=== PATIENT | male | born 1980 | race Caucasian/White ===

== ENCOUNTER 2022-10-23 04:45 | Inpatient (IN) ==
[2022-10-23] MEDS ORDERED: SODIUM CHLORIDE 0.9% 1000ML 1,000 ML IV STA (05:09)
[2022-10-23] MEDS ORDERED: ONDANSETRON INJ 2 MG/ML 2 ML VIAL IV STA (05:09)
[2022-10-23] MEDS ORDERED: AMIODARONE 150MG / 100ML D5W IV ONE (05:31)
[2022-10-23] MEDS ORDERED: AMIODARONE 360MG / 200ML D5W IV ONE ×2 (05:32→11:35)
[2022-10-23 05:35] LABS: Albumin Globulin Ratio 1.7 (0.9-2); Albumin Level 4.5 gm/dl (3.4-5.0); BUN Creatinine Ratio 17.3 (10-20); Bilirubin,Total 10.1 mg/dl (0.2-1.0); Calcium 9.3 mg/dl (8.5-10.1); Est GFR (African American) 125.3 ml/min; Est GFR (Non-African American) 108.1 ml/min; Globulin 2.6 gm/dl (2.5-4.0); Potassium 3.2 mmol/L (3.5-5.1); Total Protein 7.1 gm/dl (6.0-8.3)
[2022-10-23] MEDS ORDERED: POTASSIUM CHLORIDE 10 MEQ / 100ML WTR IV ONE (05:37)
[2022-10-23 05:42] LABS: Troponin I High Sensitivity 20.2 pg/ml (0-20)
[2022-10-23 05:48] LABS: iSTAT Creatinine 0.7 mg/dl (0.6-1.3); iSTAT Hemoglobin 13.6 g/dl (14.0-18.0); iSTAT Ionized Calcium 0.93 mmol/l (1.12-1.32); iSTAT Potassium 2.9 mmol/L (3.3-5.0)
[2022-10-23] MEDS ORDERED: MAGNESIUM SULFATE / D5W 1 GM/100 ML BAG IV SCH (05:51)
[2022-10-23 06:03] LABS: Magnesium 1.6 mg/dl (1.7-2.4)
--- NOTE | 2022-10-23 06:25 | XRay Report ---
SINGLE VIEW CHEST CLINICAL HISTORY: Dyspnea. FINDINGS: An AP, portable, upright chest radiograph is obtained. No prior studies are available for c omparison at the time of dictation. The heart appears enlarged. There is pulmonary vascular congestio n. Bilateral airspace opacities suggest edema. No large pleural effusion or pneumothorax is seen. The bony thorax is grossly intact. IMPRESSION: 1. The heart appears enlarged and there is evidence of fluid overload/congestive failure. 2. Bilateral airspace opacities likely represent pulmonary edema. Correlate clinically for evidence o f a superimposed infectious/inflammatory pneumonitis. Radiographic follow-up to resolution is recomme nded. ACT 112: Negative or not required by law. Electronically signed by: Rahul Galvin M.D. 10/23/2022 6:24 AM
[2022-10-23] MEDS: MAGNESIUM SULFATE / D5W 1 GM/100 ML BAG IV SCH ×6 (06:27→21:07)
[2022-10-23] MEDS ORDERED: ACETYLCYSTEINE IV ONE ×2 (06:30→07:30)
[2022-10-23] MEDS ORDERED: DEXTROSE 5% IV ONE ×2 (06:30→07:30)
[2022-10-23 06:43] LABS: Basophils # (auto) 0.04 K/uL (0-0.2); Basophils % (auto) 0.7 %; Eosinophils # (auto) 0.05 K/uL (0-0.50); Eosinophils % (auto) 0.9 %; Hematocrit (blood only) 34.2 % (40.1-51.0); Hemoglobin 12.7 g/dl (14.0-18.0); Immature Granulocytes # (auto) 0.04 K/uL (0.00-0.02); Immature Granulocytes % (auto) 0.7 %; Mean Corpuscular Hemoglobin 35.8 pg (25.0-34.0); Mean Corpuscular Hgb Conc 37.1 g/dL (32.0-36.0); Mean Corpuscular Volume 96.3 fL (80.0-100.0); Mean Platelet Volume 11.7 fL (9.4-12.4); Monocytes # (auto) 0.55 K/uL (0.24-0.82); Monocytes % (auto) 9.5 %; Neutrophils # (auto) 4.43 K/uL (1.4-6.5); Neutrophils % (auto) 76.2 %; Platelet Count 143 K/uL (130-400); RDW Standard Deviation 42.7 fL (36.4-46.3); Red Blood Count 3.55 M/uL (4.63-6.08); White Blood Count 5.81 K/ul (4.8-10.8)
[2022-10-23 06:55] LABS: INR 1.3 (0.9-1.1); Partial Thromboplastin Ratio 0.9; Partial Thromboplastin Time 25.4 Seconds (21.0-31.0); Prothrombin Time 13.9 Seconds (9.0-12.0)
[2022-10-23 06:57] LABS: Base Excess ABG 3.2 mEq/L (-9-1.8); HCO3 ABG 22 mmol/L (19-24); Oxygen Saturation ABG > 100.0 % (90-95); PCO2 ABG 20 mmHg (35-46); PO2 ABG 94 mmHg (80-95)
[2022-10-23] MEDS: POTASSIUM CHLORIDE / WTR 10 MEQ/100 ML PLCT IV SCH ×10 (06:59→22:38)
--- NOTE | 2022-10-23 07:02 | History & Physical Report ---
Date of Service October 23, 2022 Assessment & Plan (1) Torsades de pointes: Plan: 42yo male presenting with complaint of nausea and vomiting, decreased oral intake. Patient had an episode of torsades de pointes in the ER, s/p defibrillation at 200J and administration of IV Magnesium and Amiodarone. Thankfully he returned to NSR. Presently in sinus tachycardia. K low at 3.2 and Mg low at 1.6 PO4 is pending -Admit to MICU -Monitor cardiac rhythm -Electrolyte repletion, K and Mg -Check PO4 x 1 -Check 2D echo -Cardiology consultation appreciated (2) Electrolyte abnormality: Plan: Hypokalemia and hypomagnesemia -Repletion -Continue to monitor, BMP and Mg q 6 hours (3) Abnormal LFTs: Plan: Patient with mixed hepatocellular and obstructive pattern on LFTs. Marked increase in total bilirubin at 10.1. Patient does drink daily. Last drink was 1 week ago. -Check LFTs to see direct and indirect bilirubin -Check acute hepatitis panel -Check Ferritin -CT abdomen and pelvis -Check INR -Acetaminophen, EtOH and Salicylate levels pending -NAC per protocol initiated by MICU (4) Metabolic acidosis: Plan: Initial anion gap of 19 -Lactate and ABG pending (5) Hematemesis: Plan: Patient reports hematemesis. Concern for possible advanced hepatic disease given bilirubin. -Protonix 40mg IV BID -Consider Octreotide gtt pending results of CT Abdomen -GI Consultation appreciated -Monitor CBC (6) Alcohol use disorder: Plan: Patient with frequent EtOH use. Possibly contributing to liver abnormalities. Last drink was 1 week ago -Monitor for EtOH withdrawal, DTs -AW protocol History of Present Illness Chief Complaint: nausea, vomiting Primary Care Provider: Fang Fisher Talat Lopez is a 42yo male with history of regular EtOH use presenting with complaint of nausea and vomiting with hematemesis. Patient drinks daily - at least 2-3 beers and vodka. He was told last year that he had elevated LFTs which apparently normalized with diet and abstinence from alcohol. Patient presented to the ER tonight with above complaints as well as weakness, SOB and intermittent chest pain. In the ER patient had an episode of Torsades. He was defibrillated at 200J and given IV Amiodarone and Magnesium x 1 gram. He returned to NSR. Patient is presently on an Amiodarone drip. He is complaining of ongoing nausea. No chest pain at present. Workup as below revealed a high anion-gap metabolic acidosis as well as electrolyte derangements, hypokalemia and hypomagnesemia. Also with abnormal LFTs including a Tbili of 10, elevated AST/ALT and AP. Allergies Allergy/AdvReac Type Severity Reaction Status Date / Time No Known Allergies Allergy Mild Unverified 07/22/21 08:30 Home Medications Medication Instructions Recorded Confirmed Type Cyclobenzaprine Hcl (Flexeril *) 10 mg PO TID ##21 08/28/09 07/22/21 Rx Hydrocodone/Acetaminophen 1 - 2 tab PO Q6HR PRN ##20 08/28/09 07/22/21 Rx 5MG/500MG (Vicodin 5MG/500MG) None (Patient States No Home Meds) ##0 08/28/09 07/22/21 History diazepam 5 mg tablet (Valium) 5 mg PO TID PRN muscle spasm #14 07/21/21 07/22/21 Rx tabs methylprednisolone 4 mg tablets in See Rx Instructions .Route 07/21/21 07/22/21 Rx a dose pack (Medrol (Obdulio)) .COMPLEX #21 ea Past Med/Surg History Medical History (Updated 10/23/22 @ 07:00 by Sabrina Hernandez DO) De Quervain's syndrome (tenosynovitis) Social History Smoking Status: Never smoker Tobacco Type: Smokeless Tobacco (Dip or Chew) Preferred Language: Finnish Feels Safe at Home: Yes Review of Systems Review of Systems: All systems reviewed & are unremarkable except as noted in HPI & below Physical Exam Physical Exam: General: patient ill in appearance, NRB in place, answering questions appropriately, NAD presently Skin: warm, dry, intact, +Jaundice and scleral icterus HEENT: NC/AT, PERRL, EOMI, ICTERIC sclera, conjunctiva without injection, external ear normal to inspection and nontender, nares patent, moist mucus membranes, dentition intact, no oropharyngeal lesions, neck supple, trachea midline, no LAD, no thyromegaly, no JVD Heart: +S1/S2, regular, tachycardic, no m/r/g Lungs: equal air entry bilaterally, no rales/rhonchi/wheezes Abd: +BS, soft, palpable liver edge, mildly tender to palpation Ext: warm, 2+ pulses in UE/LE bilaterally, no clubbing/cyanosis or edema Neuro: nonfocal, patient AA&O x 4, speech intact, no facial droop, moving all extremities on command with equal strength 5/5 Results & Data Results & Data ([facility]) Vital Signs (Past 12 Hours) Vital Signs Temp Pulse Pulse Resp BP BP Pulse Ox 10/23/22 06:29 97 H 19 138/100 97 10/23/22 06:05 106 H 22 135/102 H 98 10/23/22 05:09 91 H 96 10/23/22 04:46 93 H 18 170/104 H 96 10/23/22 04:49 36.6 C 128 H 20 120/79 96 O2 Del Method 10/23/22 06:29 Room Air 10/23/22 06:05 Non-rebreather 10/23/22 05:09 Room Air 10/23/22 04:46 Room Air 10/23/22 04:49 Room Air Laboratory Results Laboratory Results WBC 5.81 K/ul (4.8-10.8) 10/23/22 06:33 RBC 3.55 M/uL (4.63-6.08) L 10/23/22 06:33 Hgb 12.7 g/dl (14.0-18.0) L 10/23/22 06:33 POC Hgb 13.6 g/dl (14.0-18.0) L 10/23/22 05:35 Hct 34.2 % (40.1-51.0) L 10/23/22 06:33 POC Hct 40 % (42-52) L 10/23/22 05:35 MCV 96.3 fL (80.0-100.0) 10/23/22 06:33 MCH 35.8 pg (25.0-34.0) H 10/23/22 06:33 MCHC 37.1 g/dL (32.0-36.0) H 10/23/22 06:33 RDW Std Deviation 42.7 fL (36.4-46.3) 10/23/22 06:33 RDW Coeff of Ale 12.0 % (11.5-14.5) 10/23/22 06:33 Plt Count 143 K/uL (130-400) 10/23/22 06:33 MPV 11.7 fL (9.4-12.4) 10/23/22 06:33 Immature Gran % (Auto) 0.7 % 10/23/22 06:33 Neut % (Auto) 76.2 % 10/23/22 06:33 Lymph % (Auto) 12.0 % 10/23/22 06:33 [place] % (Auto) 9.5 % 10/23/22 06:33 Eos % (Auto) 0.9 % 10/23/22 06:33 Baso % (Auto) 0.7 % 10/23/22 06:33 Neut # (Auto) 4.43 K/uL (1.4-6.5) 10/23/22 06:33 Lymph # (Auto) 0.70 K/uL (1.2-3.4) L 10/23/22 06:33 [place] # (Auto) 0.55 K/uL (0.24-0.82) 10/23/22 06:33 Eos # (Auto) 0.05 K/uL (0-0.50) 10/23/22 06:33 Baso # (Auto) 0.04 K/uL (0-0.2) 10/23/22 06:33 Immature Gran # (Auto) 0.04 K/uL (0.00-0.02) H 10/23/22 06:33 POC Sodium 130 mmol/L (135-144) L 10/23/22 05:35 Sodium 130 mmol/L (136-145) L 10/23/22 05:06 POC Potassium 2.9 mmol/L (3.3-5.0) L 10/23/22 05:35 Potassium 3.2 mmol/L (3.5-5.1) L 10/23/22 05:06 POC Chloride 86 mmol/L (101-112) L 10/23/22 05:35 Chloride 84 mmol/L (98-107) L 10/23/22 05:06 Carbon Dioxide 27 mmol/L (21-32) 10/23/22 05:06 POC Total CO2 27 mmol/L (24-31) 10/23/22 05:35 Anion Gap 19 (3-11) H 10/23/22 05:06 POC Anion Gap 21.0 mmol/L (16-25) 10/23/22 05:35 POC BUN 13 mg/dl (7-18) 10/23/22 05:35 BUN 14 mg/dl (6-23) 10/23/22 05:06 Creatinine 0.81 mg/dl (0.6-1.4) 10/23/22 05:06 POC Creatinine 0.7 mg/dl (0.6-1.3) 10/23/22 05:35 Est Cr Clr Drug Dosing 124.0 ml/min 10/23/22 05:06 Est GFR ( Amer) 125.3 ml/min 10/23/22 05:06 Est GFR (Non-Af Amer) 108.1 ml/min 10/23/22 05:06 BUN/Creatinine Ratio 17.3 (10-20) 10/23/22 05:06 Glucose 102 mg/dl (70-99(Fasting)) H 10/23/22 05:06 POC Glucose (other) 109 mg/dl (70-99) H 10/23/22 05:35 Calcium 9.3 mg/dl (8.5-10.1) 10/23/22 05:06 POC Ioniz Calcium Dasha 0.93 mmol/l (1.12-1.32) L 10/23/22 05:35 Magnesium 1.6 mg/dl (1.7-2.4) L 10/23/22 05:06 Total Bilirubin 10.1 mg/dl (0.2-1.0) H 10/23/22 05:06 AST 340 U/L (13-39) H 10/23/22 05:06 ALT 165 U/L (7-52) H 10/23/22 05:06 Alkaline Phosphatase 193 U/L (34-104) H 10/23/22 05:06 Troponin I High Sens 20.2 pg/ml (0-20) H 10/23/22 05:06 Total Protein 7.1 gm/dl (6.0-8.3) 10/23/22 05:06 Albumin 4.5 gm/dl (3.4-5.0) 10/23/22 05:06 Globulin 2.6 gm/dl (2.5-4.0) 10/23/22 05:06 Albumin/Globulin Ratio 1.7 (0.9-2) 10/23/22 05:06 Lipase 47 U/L (11-82) 10/23/22 05:06 SARS-CoV-2, RNA, NAAT NEGATIVE (NEGATIVE) 10/23/22 05:55 Impressions Chest X-Ray 10/23/22 06:16 SINGLE VIEW CHEST CLINICAL HISTORY: Dyspnea. FINDINGS: An AP, portable, upright chest radiograph is obtained. No prior studies are available for comparison at the time of dictation. The heart appears enlarged. There is pulmonary vascular congestion. Bilateral airspace opacities suggest edema. No large pleural effusion or pneumothorax is seen. The bony thorax is grossly intact. IMPRESSION: 1. The heart appears enlarged and there is evidence of fluid overload/congestive failure. 2. Bilateral airspace opacities likely represent pulmonary edema. Correlate clinically for evidence of a superimposed infectious/inflammatory pneumonitis. Radiographic follow-up to resolution is recommended. ACT 112: Negative or not required by law. Electronically signed by: Rahul Galvin M.D. 10/23/2022 6:24 AM ECG Additional Comments: EKG with SR at 94, normal axis, GM=387, QRS=98, QTC prolonged at 605, non- specific ST changes anterior Repeat EKG with QTC of 557 Code Status & VTE Plan VTE Prophylaxis Plan VTE Prophylaxis will be ordered: Yes Critical Care Time 60 minutes PG Care Time/CCT Total # of Minutes Spent Total Time Spent with Patient: Total time spent is greater than 50% in coordination of care (as documented) at patient's floor/unit and/or counseling patient: Coding Level of Care Code None Diagnoses Torsades de pointes I47.21 Electrolyte abnormality E87.8 Abnormal LFTs R79.89 Metabolic acidosis E87.20 Hematemesis K92.0 Alcohol use disorder F19.90
[2022-10-23] MEDS ORDERED: LORazepam 1 MG/1 ML SYR ONE (07:06)
[2022-10-23 07:08] LABS: Allen Test Pos (Pos)
[2022-10-23 07:13] LABS: Acetaminophen 18 ug/ml (10-30); Salicylate < 3.0 mg/dl (3.0-30)
[2022-10-23 07:22] LABS: pH ABG 7.65 (7.35-7.45)
[2022-10-23] MEDS ORDERED: POTASSIUM PHOS 3 MMOL/1 ML INFUSION IV STA ×2 (07:39→18:51)
--- NOTE | 2022-10-23 07:49 | Critical Care Consultation ---
Date of Consultation October 23, 2022 Assessment & Plan (1) Torsades de pointes: (2) Hematemesis: (3) Alcohol use disorder: (4) Transaminitis: (5) Hypertension: (6) Abdominal pain: (7) Bilirubinemia: (8) Electrolyte abnormality: (9) DESIRE (obstructive sleep apnea): Plan Reason Critically Ill: 42yo male presenting with complaint of nausea and vomiting, decreased oral intake. Patient had an episode of torsades de pointes in the ER, s/p defibrillation at 200J and administration of IV Magnesium and Amiodarone. Neuro - [facility] ICU: Negative --History of heavy alcohol use Monitor for signs of withdrawal Cardiac - --Torsades de point Likely from electrolyte abnormality along with prolonged QTC Keep magnesium greater than 2, phosphorus greater than 3, potassium greater than 4 --Hypertension Beta-travis started Respiratory - -- Active cigar smoker Also history of [id number] history of smoking CT chest 10/23/2022: No signs of PE, mild dependent atelectasis No mediastinal adenopathy --DESIRE Sleep study done in 2019 showed need of CPAP of 11 Given active nausea, avoid positive pressure ventilation for the time being GI - -- Hematemesis Baseline hemoglobin is 15 Came with 12.7. Monitor H&H Antiemetic as needed -- Transaminitis with elevated bilirubin, acute liver injury Discriminant factor 18. Does not qualify for prednisone. Continue to monitor Ammonia within normal limit Continue with NAC for the time being CT abdomen pelvis 10/23/2022: Hepatomegaly with severe hepatic steatosis, bilateral nephrolithiasis RENAL/LYTES - -- HAGMA Delta-delta: Negative, mixed metabolic acidosis plus alkalosis Acidosis is like a from lactate, alkalosis could be from vomiting, patient also has a component of respiratory alkalosis on top of metabolic acidosis Toxicology negative for salicylates and normal acetaminophen level of 18 ABG pH 7.65 Monitor -- Hyponatremia with hypochloremia Follow-up urine lites Continue to monitor - No active issues ENDO - -- ICU hypoglycemia protocol HEME - --Coagulopathy Likely from alcohol abuse Continue to monitor, consider vitamin K if need be ID - -- No active issues --Prophylaxis VTE: IPC GI: Pantoprazole twice daily Lines: Peripheral Diet: N.p.o. Plan: Follow-up repeat BMP, CBC BMP within normal limit Given the persistent hypertension we will start the patient on metoprolol 12.5 mg twice daily Complete the bag of amiodarone. Once electrolytes are stable to I do not think he will need more infusion especially with his beta-travis is being started. Await official cardiology consult GI has been consulted. Monitor H&H Continue with of NAC for the time being as patient came in with acute liver injury Decrease the rate of fluid to 75 mill an hour as patient is getting NAC as well. Follow-up 2D echo Potassium, magnesium and phosphorus are being replaced. I have personally spent 62 minutes of critical care time in the direct management of this patient. This is a life/limb threatening event. This includes time spent evaluating patient, direct bedside care, chart review, placing orders, interpretation of diagnostic studies, discussion with consultants, patient, and family members, as well as other required patient management activities. This time is exclusive of all separately billable procedures, and teaching time and separate from and in addition to any other critical care service time. History of Present Illness History of Present Illness 42-year-old male presents to the hospital with complaints of nausea, vomiting and shortness of breath Past medical history: Alcohol abuse In the ER patient went into torsade de pointes. He was defibrillated at 200 J, IV amiodarone was started and magnesium 1 g was given. He returned to a normal sinus rhythm. Patient's partner was also in the room at the time of examination Patient has also been complaining of hematemesis since last couple of days. Denies any significant abdominal pain except for the mild midepigastric. No chest pain, no shortness of breath, no headache, dizziness He has been feeling weak for the past 4 to 5 days. He did not have a drink for approximately 2 weeks. Denies any craving for it. No fever or chills No dysuria, no diarrhea. Denies any hematochezia, hematuria. No headache, no blurry vision Social history: Drinks on a daily basis, 2-3 beers and vodka. He cannot quantify it. Smokes cigar on regular basis. Used to be a pack a day smoker before for approximately 20 years Allergies Allergy/AdvReac Type Severity Reaction Status Date / Time No Known Allergies Allergy Mild Unverified 07/22/21 08:30 Home Medications Medication Instructions Recorded Confirmed Type Cyclobenzaprine Hcl (Flexeril *) 10 mg PO TID ##21 08/28/09 07/22/21 Rx Hydrocodone/Acetaminophen 1 - 2 tab PO Q6HR PRN ##20 08/28/09 07/22/21 Rx 5MG/500MG (Vicodin 5MG/500MG) None (Patient States No Home Meds) ##0 08/28/09 07/22/21 History diazepam 5 mg tablet (Valium) 5 mg PO TID PRN muscle spasm #14 07/21/21 07/22/21 Rx tabs methylprednisolone 4 mg tablets in See Rx Instructions .Route 07/21/21 07/22/21 Rx a dose pack (Medrol (Obdulio)) .COMPLEX #21 ea Patient History Medical History (Updated 10/23/22 @ 09:43 by Jim Landers MD, [facility]) De Quervain's syndrome (tenosynovitis) Social History Smoking Status: Never smoker Tobacco Type: Smokeless Tobacco (Dip or Chew) Preferred Language: Bahraini Feels Safe at Home: Yes Review of Systems Review of Systems: All systems reviewed & are unremarkable except as noted in HPI & below Physical Exam Physical Exam: Constitutional: No acute distress HEENT: EOMI, PERRLA Respiratory system: Good air entry bilaterally, no wheeze, rhonchi, mild crackles bilateral lower lobes CVS: S1-S2 positive, no murmurs or gallops, tachycardia Abdomen: Soft, mild epigastric tenderness, no rebound, nondistended, positive bowel sounds x4, hepatomegaly Extremities: +2 pulses bilaterally radialis/ dorsalis pedis, no cyanosis, no edema Neuro: Awake alert oriented x3 Psych: Normal mood and affect G/U: No [place] Skin: no rashes, warm and dry Lymphatic: no cervical or axillary lymphadenopathy Results & Data Results & Data ([facility]) Vital Signs (Past 12 Hours) Vital Signs Temp Pulse Pulse Resp BP BP Pulse Ox 10/23/22 07:12 94 10/23/22 07:11 96 H 25 H 87 L 10/23/22 07:09 92 H 22 148/97 H 92 10/23/22 06:29 97 H 19 138/100 97 10/23/22 06:05 106 H 22 135/102 H 98 10/23/22 05:09 91 H 96 10/23/22 04:46 93 H 18 170/104 H 96 10/23/22 04:49 36.6 C 128 H 20 120/79 96 O2 Del Method O2 Flow Rate 10/23/22 07:12 Nasal Cannula 2 10/23/22 07:11 Room Air 10/23/22 07:09 10/23/22 06:29 Room Air 10/23/22 06:05 Non-rebreather 10/23/22 05:09 Room Air 10/23/22 04:46 Room Air 10/23/22 04:49 Room Air Laboratory Results 10/23/22 06:33 10/23/22 05:06 Coding Level of Care Code Critical Care 1st 30-74 mins Diagnoses Torsades de pointes I47.21 Hematemesis K92.0 Alcohol use disorder F19.90 Transaminitis R74.01 Hypertension I10 Abdominal pain R10.9 Bilirubinemia E80.6 Electrolyte abnormality E87.8 DESIRE (obstructive sleep apnea) G47.33 Time Spent (min) 62
[2022-10-23 07:58] LABS: BUN Creatinine Ratio 18.9 (10-20); Calcium 8.3 mg/dl (8.5-10.1); Creatinine Clr Calc Pharmacy 135.7 ml/min; Est GFR (Non-African American) 112.2 ml/min; Potassium 3.2 mmol/L (3.5-5.1)
[2022-10-23] MEDS ORDERED: POTASSIUM PHOSPHATE 30 MMOL in SODIUM CHLORIDE 0.9% 500 ML IV ONE ×2 (08:00→19:15)
--- NOTE | 2022-10-23 08:09 | CT Scan Report ---
CT SCAN OF THE ABDOMEN AND PELVIS WITHOUT IV CONTRAST CLINICAL HISTORY: Generalized abdominal pain. Liver failure. COMPARISON STUDY: Abdominal CT dated 11/19/2021. TECHNIQUE: CT scan of the abdomen and pelvis is performed from the lung bases to the proximal femora. Images are reviewed in the axial, sagittal, and coronal planes. IV contrast was not administered for this examination. A dose lowering technique was utilized adhering to the principles of ALARA. FINDINGS: Lung bases: The heart is top normal in size and without pericardial effusion. The lung bases are anthony r noting dependent atelectasis. A small hiatal hernia is noted. Liver: The unenhanced liver is enlarged, measuring 28 cm in length. The liver demonstrates diffusely decreased attenuation consistent with severe steatosis. There is no intrahepatic biliary ductal dilat ation. Gallbladder: Unremarkable. Spleen: Normal in size and attenuation. Pancreas: Unremarkable. Adrenal glands: Unremarkable. Kidneys: The unenhanced kidneys are normal in size and without hydronephrosis. There are at least 3 n onobstructing right renal calculi measuring up to 2 mm. A punctate nonobstructing calculus is noted i n the left kidney. No ureteral stone is seen. There is no evidence of contour deforming renal mass le zuleika. There is mild nonspecific bilateral perinephric stranding. Abdominal vasculature: The abdominal aorta is normal in course and caliber. Bowel: There is no bowel obstruction. Residual enteric contrast is seen in the colon. The appendix is well-visualized and normal. Peritoneum: There is no intraperitoneal free air or abdominal ascites. There is a fat-containing umbi lical hernia. Lymphadenopathy: None. Pelvic viscera: The bladder, prostate, and seminal vesicles are normal as visualized. Skeletal structures: No lytic or blastic lesions are seen. IMPRESSION: 1. No acute infectious or inflammatory findings are identified in the abdomen or pelvis. 2. Hepatomegaly and severe hepatic steatosis. 3. Bilateral nephrolithiasis. 4. Additional findings as above. ACT 112: Negative or not required by law. Electronically signed by: Rahul Galvin M.D. 10/23/2022 8:07 AM
--- NOTE | 2022-10-23 08:09 | CT Scan Report ---
CHEST CTA for PULMONARY ARTERIES CT DOSE: 1539.00 mGy.cm HISTORY: Atypical chest pain. Vomiting blood. TECHNIQUE: Multiaxial CT images of the chest were performed following the intravenous administration of contrast to evaluate the pulmonary arteries. Maximal intensity projection images were also obtaine d. A dose lowering technique was utilized adhering to the principles of ALARA. COMPARISON STUDY: None. FINDINGS: The central airways are patent. No pneumothorax. No pleural effusions. Mild dependent morrison es seen at the lung bases. Otherwise, no focal lung consolidations to suggest a pneumonia. No evidenc e for pulmonary edema. Partially visualized cervical spinal hardware is noted. No fractures within th e visualized osseous structures. Normal thyroid gland. The heart is mildly enlarged. Severe hepatic s teatosis is noted. There is a normal visualized spleen. Normal esophagus. No mediastinal or hilar lym phadenopathy. Normal caliber thoracic aorta with no evidence for a dissection. No filling defects wit hin the pulmonary arteries to suggest a pulmonary embolus. IMPRESSION: 1. No evidence for a pulmonary embolus. 2. Mild cardiomegaly. 3. Severe hepatic steatosis. This is better appreciated on the same day abdomen and pelvis CT. ACT 112: Negative or not required by law. Electronically signed by: Nestor Fung M.D. 10/23/2022 8:07 AM
[2022-10-23] MEDS ORDERED: NORMOSOL-R 1,000 ML IV SCH (08:23)
--- NOTE | 2022-10-23 08:24 | Emergency Department Note ---
Impression & Plan History of torsades de pointes, Bilirubinemia, Hematemesis, Chest pain, Hypokalemia, Hypomagnesemia, Alcohol abuse Admit to the ICU and the hospitalist group ED Provider Note NAME: ZACHARY DOZIER AGE: 42 SEX: M ARRIVES VIA: Walk-In INFORMANT: Patient and his ED PROVIDER(S): Radha Mai DO CHIEF COMPLAINT: Nausea and vomiting PLAN: Disposition: Admit to the ICU Condition: Critical MEDICAL DECISION MAKING: This is a 42-year-old male patient with a history of alcohol abuse who presents to the emergency department with a 1 week history of nausea and vomiting. Patient states that he essentially has not been able to keep any solid food down over the past 1 week and was having difficulty with even water over the past 3 to 4 days. He became more concerned over the past 48 hours as he started to vomit blood. The also adds that he has had intermittent episodes of chest pain over the past couple of weeks for which she had seen his PCP who scheduled a stress test for this upcoming Tuesday. Patient has a history of chronic neck pain for which she underwent cervical disc surgery in the past and that seems to started to bother him again recently. The patient does drink beer and vodka heavily on a daily basis but has not been able to drink over the past week. He denies any withdrawals from alcohol when he does not drink. On presentation, the patient had obvious scleral icterus and concern for hepatic failure. After just a short period of time of being here in the emergency department on the media monitor, it was noted the patient was having multifocal PVCs, couplets, triplets, bigeminy, then runs of ventricular tachycardia. He was moved to room B1. He was placed on the defibrillator pads and a second IV lock had been initiated. We quickly obtained an i-STAT and found that his potassium was low and started him on a K rider and additional IV fluids and ordered magnesium and phosphorus levels. I started the patient on a bolus of amiodarone and amiodarone drip. while I was talking to the patient, he had a short episode of torsades and went unresponsive. This quickly resolved on its own. Just moments later, the patient went back into torsades and he required defibrillation at 200 J. He went back into a normal sinus rhythm. The patient was then bolused with IV magnesium. His magnesium and phosphorus levels came back low. The patient's total bilirubin is greater than 10. Chest x-ray shows evidence of pulmonary vascular congestion. I discussed the case with the critical care team as well as the [facility] Hospitalist. Triage Nursing notes reviewed and agree with them. Additional history obtained from the patient's who is at the bedside Prior medical records reviewed Vital Signs: reviewed and remarkable for hypertension Differential diagnosis: Alcoholic hepatitis, alcoholic gastritis, electrolyte abnormality, Tylenol overdose, cardiac ischemia, esophageal varices, cardiac dysrhythmia ER treatment provided: IV Zofran IV amiodarone IV potassium IV magnesium IV Ativan Diagnostics interpreted by me: ECG: Normal sinus rhythm at a rate of 94 with a prolonged QT 605 ms. There is no ectopy or signs of ischemia. Cardiac Monitoring: Normal sinus rhythm at a rate of 92 Laboratory studies: See below Imaging studies: As per my interpretation Cardiomegaly with moderate pulmonary vascular congestion/fluid overload HPI: 42/M arrives for evaluation of chest pain and vomiting blood. The patient explains that he has had nausea and vomiting for the past 1 week. He has not been able to keep any food down for over 1 week and has had difficulty with water for the past 3 to 4 days. He became more concerned over the past 48 hours because he has been vomiting blood. Patient's explains that he has had intermittent episodes of chest pain for the past couple weeks for which she saw his PCP. They scheduled a cardiac stress test this upcoming Tuesday. Patient has a history of cervical disc disease for which he underwent surgery last year and this has been bothering him more frequently for the past couple of days. ROS: See above HPI for pertinent positives & negatives. A total of 10 systems reviewed and were otherwise negative. 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 Extraocular eye muscles are intact, and sclera are significantly icteric. Nose - moist nasal mucosa without discharge. Mouth - moist buccal mucosa. Oropharynx is nonerythematous and there is no tonsillar exudate or edema noted. Neck: Supple; no JVD, nuchal rigidity, cervical lymphadenopathy, or auscultated bruits. Heart: Regular rate and rhythm. There is a normal S1 and S2 with no murmurs, clicks, or gallops appreciated. Lungs: Clear to auscultation bilaterally with no wheezes, rales, or rhonchi. Abdomen: Soft, completely nontender, nondistended, with good bowel sounds. There are no palpable pulsatile masses or hepatosplenomegaly. There is no guarding, rigidity, or rebound noted. Extremities: No evidence of cyanosis, clubbing, or edema. There are easily palpable peripheral pulses. Skin: warm and dry with poor turgor and no rashes. ED COURSE: Patient was evaluated in room B6. A complete history and physical was performed. An IV lock was initiated and labs were drawn as above. An order was placed for continuous cardiac monitoring. Patient was bolused with IV normal saline solution. He was given 4 mg of IV Zofran for nausea. A twelve- lead EKG was obtained as described above. A portable chest x-ray was performed. The patient was noted to have significant ectopy on the monitor and was moved to room B1 and placed on the defibrillator. A second IV lock was initiated, blood was drawn and an i-STAT was performed. The patient's potassium was slightly low. A K rider was started. The patient was ordered to have a bolus of IV amiodarone and start amiodarone drip. The patient went unresponsive and had a brief episode of torsades. This resolved on its own and he regained consciousness. I explained the critical nature of this to the patient and his . The bolus of amiodarone room was continued and nursing staff prepped a bolus of IV magnesium. Just moments later, the patient had another episode of prolonged torsades/V. fib. The patient required defibrillation at 200 J. He promptly went back into a normal sinus rhythm. He was placed on supplemental oxygen. A repeat twelve-lead EKG was obtained. I discussed the case with the critical care team and the [facility] Hospitalist. On the monitor, the patient was no longer having multifocal PVCs or runs of ventricular tachycardia. He was more hemodynamically stable. I have personally spent greater than 65 minutes of critical care time in the direct management of this patient. This includes bedside care, interpretation of diagnostic studies, and testing, discussion with consultants, patient, and family members, and other required patient management activities. This 65 mi nutes is in excess of all separately billable procedures. Radha Mai DO Past Med/Surg History Medical History De Quervain's syndrome (tenosynovitis) Social History Smoking Status: Former smoker Tobacco Type: Smokeless Tobacco (Dip or Chew) Second Hand Exposure: No; Hx Alcohol Use: Yes Alcohol type: hard liquor Hx Substance Use: No Preferred Language: Danish Communication Ability: Effective Filter Cloth Maker Required: No Beliefs That Will Affect Care: None Current Living Situation: Spouse Feels Safe at Home: Yes Assistive Devices: None Allergies Allergies Allergy/AdvReac Type Severity Reaction Status Date / Time No Known Allergies Allergy Mild Unverified 07/22/21 08:30 Home Meds Home Medications Medication Instructions Recorded Confirmed None (Patient States No Home Meds) ##0 08/28/09 07/22/21 Previous Rx's Medication Instructions Recorded Cyclobenzaprine Hcl (Flexeril *) 10 mg PO TID ##21 08/28/09 Hydrocodone/Acetaminophen 1 - 2 tab PO Q6HR PRN ##20 08/28/09 5MG/500MG (Vicodin 5MG/500MG) diazepam 5 mg tablet (Valium) 5 mg PO TID PRN muscle spasm #14 07/21/21 tabs methylprednisolone 4 mg tablets in See Rx Instructions .Route 07/21/21 a dose pack (Medrol (Obdulio)) .COMPLEX #21 ea Results & Data (ED) Vital Signs Vital Signs - 24 hr 10/23/22 04:49 10/23/22 04:46 10/23/22 05:09 Temperature 36.6 C Temperature Source Oral Pulse Rate 128 H 91 H Pulse Rate [Right] 93 H Respiratory Rate 20 18 Respiratory Depth Normal Blood Pressure 120/79 Blood Pressure [Left Arm] 170/104 H Blood Pressure Mean 92 Blood Pressure Mean [Left Arm] 126 Blood Pressure Position Sitting Blood Pressure Position [Left Arm] Lying Pulse Oximetry 96 96 96 Oxygen Delivery Method Room Air Room Air Room Air Sepsis Recent Fever Within 48 Hours No Sepsis New/Unexplained Change in Mental Status N/A Sepsis Action Taken by Nursing No Action Required 10/23/22 06:05 10/23/22 06:29 Temperature Temperature Source Pulse Rate Pulse Rate [Right] 106 H 97 H Respiratory Rate 22 19 Respiratory Depth Blood Pressure Blood Pressure [Left Arm] 135/102 H 138/100 Blood Pressure Mean Blood Pressure Mean [Left Arm] 113 112 Blood Pressure Position Blood Pressure Position [Left Arm] Pulse Oximetry 98 97 Oxygen Delivery Method Non-rebreather Room Air Sepsis Recent Fever Within 48 Hours Sepsis New/Unexplained Change in Mental Status Sepsis Action Taken by Nursing Laboratory Data Result diagrams: 10/23/22 12:02 10/23/22 17:54 Lab Results 10/23/22 10/23/22 10/23/22 Range/Units 05:06 05:35 05:55 WBC (4.8-10.8) K/ul RBC (4.63-6.08) M/uL Hgb (14.0-18.0) g/dl POC Hgb 13.6 L (14.0-18.0) g/dl Hct (40.1-51.0) % POC Hct 40 L (42-52) % MCV (80.0-100.0) fL MCH (25.0-34.0) pg MCHC (32.0-36.0) g/dL RDW Std Deviation (36.4-46.3) fL RDW Coeff of Ale (11.5-14.5) % Plt Count (130-400) K/uL MPV (9.4-12.4) fL Immature Gran % (Auto) % Neut % (Auto) % Lymph % (Auto) % [place] % (Auto) % Eos % (Auto) % Baso % (Auto) % Neut # (Auto) (1.4-6.5) K/uL Lymph # (Auto) (1.2-3.4) K/uL [place] # (Auto) (0.24-0.82) K/uL Eos # (Auto) (0-0.50) K/uL Baso # (Auto) (0-0.2) K/uL Immature Gran # (Auto) (0.00-0.02) K/uL PT (9.0-12.0) Seconds INR (0.9-1.1) APTT (21.0-31.0) Seconds PTT Ratio POC Sodium 130 L (135-144) mmol/L Sodium 130 L (136-145) mmol/L POC Potassium 2.9 L (3.3-5.0) mmol/L Potassium 3.2 L (3.5-5.1) mmol/L POC Chloride 86 L (101-112) mmol/L Chloride 84 L (98-107) mmol/L Carbon Dioxide 27 (21-32) mmol/L POC Total CO2 27 (24-31) mmol/L Anion Gap 19 H (3-11) POC Anion Gap 21.0 (16-25) mmol/L POC BUN 13 (7-18) mg/dl BUN 14 (6-23) mg/dl Creatinine 0.81 (0.6-1.4) mg/dl POC Creatinine 0.7 (0.6-1.3) mg/dl Est Cr Clr Drug Dosing 124.0 ml/min Est GFR ( Amer) 125.3 ml/min Est GFR (Non-Af Amer) 108.1 ml/min BUN/Creatinine Ratio 17.3 (10-20) Glucose 102 H (70-99(Fasting)) mg/dl POC Glucose (other) 109 H (70-99) mg/dl Lactate Calcium 9.3 (8.5-10.1) mg/dl POC Ioniz Calcium Dasha 0.93 L (1.12-1.32) mmol/l Phosphorus (2.5-4.9) mg/dl Magnesium 1.6 L (1.7-2.4) mg/dl Total Bilirubin 10.1 H (0.2-1.0) mg/dl AST 340 H (13-39) U/L ALT 165 H (7-52) U/L Alkaline Phosphatase 193 H (34-104) U/L Troponin I High Sens 20.2 H (0-20) pg/ml Total Protein 7.1 (6.0-8.3) gm/dl Albumin 4.5 (3.4-5.0) gm/dl Globulin 2.6 (2.5-4.0) gm/dl Albumin/Globulin Ratio 1.7 (0.9-2) Lipase 47 (11-82) U/L Salicylates (3.0-30) mg/dl Acetaminophen (10-30) ug/ml Ethyl Alcohol mg/dL (<10.0) mg/dl SARS-CoV-2, RNA, NAAT NEGATIVE (NEGATIVE) Blood Type Antibody Screen 10/23/22 10/23/22 10/23/22 Range/Units 06:33 06:33 06:33 WBC 5.81 (4.8-10.8) K/ul RBC 3.55 L (4.63-6.08) M/uL Hgb 12.7 L (14.0-18.0) g/dl POC Hgb (14.0-18.0) g/dl Hct 34.2 L (40.1-51.0) % POC Hct (42-52) % MCV 96.3 (80.0-100.0) fL MCH 35.8 H (25.0-34.0) pg MCHC 37.1 H (32.0-36.0) g/dL RDW Std Deviation 42.7 (36.4-46.3) fL RDW Coeff of Ale 12.0 (11.5-14.5) % Plt Count 143 (130-400) K/uL MPV 11.7 (9.4-12.4) fL Immature Gran % (Auto) 0.7 % Neut % (Auto) 76.2 % Lymph % (Auto) 12.0 % [place] % (Auto) 9.5 % Eos % (Auto) 0.9 % Baso % (Auto) 0.7 % Neut # (Auto) 4.43 (1.4-6.5) K/uL Lymph # (Auto) 0.70 L (1.2-3.4) K/uL [place] # (Auto) 0.55 (0.24-0.82) K/uL Eos # (Auto) 0.05 (0-0.50) K/uL Baso # (Auto) 0.04 (0-0.2) K/uL Immature Gran # (Auto) 0.04 H (0.00-0.02) K/uL PT 13.9 H (9.0-12.0) Seconds INR 1.3 H (0.9-1.1) APTT 25.4 (21.0-31.0) Seconds PTT Ratio 0.9 POC Sodium (135-144) mmol/L Sodium (136-145) mmol/L POC Potassium (3.3-5.0) mmol/L Potassium (3.5-5.1) mmol/L POC Chloride (101-112) mmol/L Chloride (98-107) mmol/L Carbon Dioxide (21-32) mmol/L POC Total CO2 (24-31) mmol/L Anion Gap (3-11) POC Anion Gap (16-25) mmol/L POC BUN (7-18) mg/dl BUN (6-23) mg/dl Creatinine (0.6-1.4) mg/dl POC Creatinine (0.6-1.3) mg/dl Est Cr Clr Drug Dosing ml/min Est GFR ( Amer) ml/min Est GFR (Non-Af Amer) ml/min BUN/Creatinine Ratio (10-20) Glucose (70-99(Fasting)) mg/dl POC Glucose (other) (70-99) mg/dl Lactate Calcium (8.5-10.1) mg/dl POC Ioniz Calcium Dasha (1.12-1.32) mmol/l Phosphorus (2.5-4.9) mg/dl Magnesium (1.7-2.4) mg/dl Total Bilirubin (0.2-1.0) mg/dl AST (13-39) U/L ALT (7-52) U/L Alkaline Phosphatase (34-104) U/L Troponin I High Sens (0-20) pg/ml Total Protein (6.0-8.3) gm/dl Albumin (3.4-5.0) gm/dl Globulin (2.5-4.0) gm/dl Albumin/Globulin Ratio (0.9-2) Lipase (11-82) U/L Salicylates < 3.0 L (3.0-30) mg/dl Acetaminophen 18 (10-30) ug/ml Ethyl Alcohol mg/dL (<10.0) mg/dl SARS-CoV-2, RNA, NAAT (NEGATIVE) Blood Type Antibody Screen 10/23/22 10/23/22 10/23/22 Range/Units 06:33 06:33 06:33 WBC (4.8-10.8) K/ul RBC (4.63-6.08) M/uL Hgb (14.0-18.0) g/dl POC Hgb (14.0-18.0) g/dl Hct (40.1-51.0) % POC Hct (42-52) % MCV (80.0-100.0) fL MCH (25.0-34.0) pg MCHC (32.0-36.0) g/dL RDW Std Deviation (36.4-46.3) fL RDW Coeff of Ale (11.5-14.5) % Plt Count (130-400) K/uL MPV (9.4-12.4) fL Immature Gran % (Auto) % Neut % (Auto) % Lymph % (Auto) % [place] % (Auto) % Eos % (Auto) % Baso % (Auto) % Neut # (Auto) (1.4-6.5) K/uL Lymph # (Auto) (1.2-3.4) K/uL [place] # (Auto) (0.24-0.82) K/uL Eos # (Auto) (0-0.50) K/uL Baso # (Auto) (0-0.2) K/uL Immature Gran # (Auto) (0.00-0.02) K/uL PT (9.0-12.0) Seconds INR (0.9-1.1) APTT (21.0-31.0) Seconds PTT Ratio POC Sodium (135-144) mmol/L Sodium (136-145) mmol/L POC Potassium (3.3-5.0) mmol/L Potassium (3.5-5.1) mmol/L POC Chloride (101-112) mmol/L Chloride (98-107) mmol/L Carbon Dioxide (21-32) mmol/L POC Total CO2 (24-31) mmol/L Anion Gap (3-11) POC Anion Gap (16-25) mmol/L POC BUN (7-18) mg/dl BUN (6-23) mg/dl Creatinine (0.6-1.4) mg/dl POC Creatinine (0.6-1.3) mg/dl Est Cr Clr Drug Dosing ml/min Est GFR ( Amer) ml/min Est GFR (Non-Af Amer) ml/min BUN/Creatinine Ratio (10-20) Glucose (70-99(Fasting)) mg/dl POC Glucose (other) (70-99) mg/dl Lactate Cancelled Calcium (8.5-10.1) mg/dl POC Ioniz Calcium Dasha (1.12-1.32) mmol/l Phosphorus 1.3 L* (2.5-4.9) mg/dl Magnesium (1.7-2.4) mg/dl Total Bilirubin (0.2-1.0) mg/dl AST (13-39) U/L ALT (7-52) U/L Alkaline Phosphatase (34-104) U/L Troponin I High Sens (0-20) pg/ml Total Protein (6.0-8.3) gm/dl Albumin (3.4-5.0) gm/dl Globulin (2.5-4.0) gm/dl Albumin/Globulin Ratio (0.9-2) Lipase (11-82) U/L Salicylates (3.0-30) mg/dl Acetaminophen (10-30) ug/ml Ethyl Alcohol mg/dL < 10.0 (<10.0) mg/dl SARS-CoV-2, RNA, NAAT (NEGATIVE) Blood Type Antibody Screen 10/23/22 Range/Units 06:33 WBC (4.8-10.8) K/ul RBC (4.63-6.08) M/uL Hgb (14.0-18.0) g/dl POC Hgb (14.0-18.0) g/dl Hct (40.1-51.0) % POC Hct (42-52) % MCV (80.0-100.0) fL MCH (25.0-34.0) pg MCHC (32.0-36.0) g/dL RDW Std Deviation (36.4-46.3) fL RDW Coeff of Ale (11.5-14.5) % Plt Count (130-400) K/uL MPV (9.4-12.4) fL Immature Gran % (Auto) % Neut % (Auto) % Lymph % (Auto) % [place] % (Auto) % Eos % (Auto) % Baso % (Auto) % Neut # (Auto) (1.4-6.5) K/uL Lymph # (Auto) (1.2-3.4) K/uL [place] # (Auto) (0.24-0.82) K/uL Eos # (Auto) (0-0.50) K/uL Baso # (Auto) (0-0.2) K/uL Immature Gran # (Auto) (0.00-0.02) K/uL PT (9.0-12.0) Seconds INR (0.9-1.1) APTT (21.0-31.0) Seconds PTT Ratio POC Sodium (135-144) mmol/L Sodium (136-145) mmol/L POC Potassium (3.3-5.0) mmol/L Potassium (3.5-5.1) mmol/L POC Chloride (101-112) mmol/L Chloride (98-107) mmol/L Carbon Dioxide (21-32) mmol/L POC Total CO2 (24-31) mmol/L Anion Gap (3-11) POC Anion Gap (16-25) mmol/L POC BUN (7-18) mg/dl BUN (6-23) mg/dl Creatinine (0.6-1.4) mg/dl POC Creatinine (0.6-1.3) mg/dl Est Cr Clr Drug Dosing ml/min Est GFR ( Amer) ml/min Est GFR (Non-Af Amer) ml/min BUN/Creatinine Ratio (10-20) Glucose (70-99(Fasting)) mg/dl POC Glucose (other) (70-99) mg/dl Lactate Calcium (8.5-10.1) mg/dl POC Ioniz Calcium Dasha (1.12-1.32) mmol/l Phosphorus (2.5-4.9) mg/dl Magnesium (1.7-2.4) mg/dl Total Bilirubin (0.2-1.0) mg/dl AST (13-39) U/L ALT (7-52) U/L Alkaline Phosphatase (34-104) U/L Troponin I High Sens (0-20) pg/ml Total Protein (6.0-8.3) gm/dl Albumin (3.4-5.0) gm/dl Globulin (2.5-4.0) gm/dl Albumin/Globulin Ratio (0.9-2) Lipase (11-82) U/L Salicylates (3.0-30) mg/dl Acetaminophen (10-30) ug/ml Ethyl Alcohol mg/dL (<10.0) mg/dl SARS-CoV-2, RNA, NAAT (NEGATIVE) Blood Type O Positive Antibody Screen NEGATIVE Administered Medications Acetylcysteine 7,770 mg/ (Dextrose) 1,038.85 mls @ 64.928 mls/hr IV ONCE ONE; Protocol Stop: 10/24/22 03:29 Last Admin: 10/23/22 12:11 Dose: 64.9 mls/hr Documented By: RONI Pantoprazole Sodium 40 mg/ (Syringe) 10 mls @ 5 mls/min IV BID SUZE Stop: 11/22/22 08:59 Last Admin: 10/23/22 09:33 Dose: 5 mls/min Documented By: RONI Thiamine HCl 500 mg/ Sodium (Chloride) 55 mls @ 220 mls/hr IV Q12 SUZE Stop: 10/26/22 08:59 Last Infusion: 10/23/22 10:02 Dose: 0 mls/hr Documented By: Admin: 10/23/22 09:47 Dose: 220 mls/hr Documented By: RONI Parenteral Electrolytes (Normosol-R) 1,000 mls @ 75 mls/hr IV .[id number] SUZE Stop: 10/23/22 20:45 Last Infusion: 10/23/22 09:43 Dose: 75 mls/hr Documented By: Admin: 10/23/22 09:33 Dose: 125 mls/hr Documented By: RONI Potassium Chloride (K Arya / Wtr) 10 meq in 100 mls @ 100 mls/hr IV Q1H SUZE Stop: 10/23/22 19:29 Last Admin: 10/23/22 18:28 Dose: 100 mls/hr Documented By: Infusion: 10/23/22 18:28 Dose: 100 mls/hr Documented By: Admin: 10/23/22 17:33 Dose: 100 mls/hr Documented By: Infusion: 10/23/22 17:33 Dose: 100 mls/hr Documented By: Admin: 10/23/22 16:33 Dose: 100 mls/hr Documented By: Infusion: 10/23/22 16:33 Dose: 100 mls/hr Documented By: Admin: 10/23/22 15:33 Dose: 100 mls/hr Documented By: CMP Miscellaneous (Icu Protocol For Hyperglycemia) 1 each N/A ACHS SUZE Stop: 10/25/22 08:22 Last Admin: 10/23/22 09:39 Dose: Not Given Documented By: RONI Multivitamins (Multivitamin Tab) 1 tab PO QAM SUZE Stop: 11/22/22 08:59 Last Admin: 10/23/22 10:13 Dose: 1 tab Documented By: RONI Discontinued Medications Amiodarone HCl/Dextrose (Amiodarone 150mg / 100ml D5w) Confirm Administered Dose 150 mg IV .STK-MED ONE Stop: 10/23/22 05:32 Last Admin: 10/23/22 05:37 Dose: 150 mg Documented By: PHIL Co-signed By: SHADY Amiodarone HCl/Dextrose (Amiodarone 360mg / 200ml D5w) Confirm Administered Dose 360 mg IV .STK-MED ONE Stop: 10/23/22 05:33 Last Admin: 10/23/22 05:47 Dose: 360 mg Documented By: PHIL Co-signed By: SHADY Amiodarone HCl/Dextrose (Amiodarone 360mg / 200ml D5w) Confirm Administered Dose 360 mg IV .STK-MED ONE Stop: 10/23/22 11:36 Last Admin: 10/23/22 11:44 Dose: Not Given Documented By: RONI Sodium Chloride (Nss 1000ml) 1,000 mls @ 999 mls/hr IV .Q1H1M STA Stop: 10/23/22 06:09 Last Infusion: 10/23/22 06:13 Dose: 0 mls/hr Documented By: Admin: 10/23/22 05:20 Dose: 999 mls/hr Documented By: ESTUARDO Magnesium Sulfate/Dextrose (Magnesium Sulfate / D5w) 1 gm in 100 mls @ 400 mls/hr IV Q15M SUZE Stop: 10/23/22 06:05 Last Infusion: 10/23/22 06:13 Dose: 0 mls/hr Documented By: Admin: 10/23/22 05:53 Dose: 400 mls/hr Documented By: PHIL Magnesium Sulfate/Dextrose (Magnesium Sulfate / D5w) 1 gm in 100 mls @ 50 mls/hr IV Q2H SUZE Stop: 10/23/22 10:14 Last Infusion: 10/23/22 10:32 Dose: 0 mls/hr Documented By: Admin: 10/23/22 08:33 Dose: 50 mls/hr Documented By: Infusion: 10/23/22 08:27 Dose: 50 mls/hr Documented By: Admin: 10/23/22 06:27 Dose: 50 mls/hr Documented By: PHIL Potassium Chloride (K Arya / Wtr) 10 meq in 100 mls @ 100 mls/hr IV Q1H SUZE; Protocol Stop: 10/23/22 08:14 Last Infusion: 10/23/22 08:59 Dose: 0 mls/hr Documented By: Admin: 10/23/22 07:59 Dose: 100 mls/hr Documented By: Infusion: 10/23/22 07:59 Dose: 100 mls/hr Documented By: Admin: 10/23/22 06:59 Dose: 100 mls/hr Documented By: LEXI Acetylcysteine 11,660 mg/ (Dextrose) 258.3 mls @ 258.3 mls/hr IV ONCE ONE; Protocol Stop: 10/23/22 07:29 Last Infusion: 10/23/22 07:48 Dose: 0 mls/hr Documented By: Admin: 10/23/22 06:48 Dose: 258.3 mls/hr Documented By: PHIL Acetylcysteine 3,890 mg/ (Dextrose) 519.45 mls @ 129.863 mls/hr IV ONCE ONE; Protocol Stop: 10/23/22 11:29 Last Infusion: 10/23/22 12:11 Dose: 0 mls/hr Documented By: Admin: 10/23/22 08:34 Dose: 129.9 mls/hr Documented By: RONI Magnesium Sulfate/Dextrose (Magnesium Sulfate / D5w) 1 gm in 100 mls @ 800 mls/hr IV Q7M SUZE Stop: 10/23/22 07:52 Last Admin: 10/23/22 09:45 Dose: Not Given Documented By: Admin: 10/23/22 09:43 Dose: Not Given Documented By: RONI Potassium Phosphate 30 mmol/ (Sodium Chloride) 510 mls @ 88 mls/hr IV 0800 ONE Stop: 10/23/22 13:47 Last Infusion: 10/23/22 15:30 Dose: 0 mls/hr Documented By: [facility] Admin: 10/23/22 09:35 Dose: 88 mls/hr Documented By: RONI Magnesium Sulfate/Dextrose (Magnesium Sulfate / D5w) 1 gm in 100 mls @ 50 mls/hr IV ONE ONE Stop: 10/23/22 11:14 Last Infusion: 10/23/22 12:12 Dose: 0 mls/hr Documented By: Admin: 10/23/22 10:31 Dose: 50 mls/hr Documented By: RONI Amiodarone HCl/Dextrose (Nexterone / D5w) 360 mg in 200 mls @ 16.667 mls/hr IV .Q12H SUZE Stop: 11/22/22 11:44 Last Infusion: 10/23/22 12:31 Dose: 0 mg/min, 0 mls/hr Documented By: RONI Co-signed By: JOSE ANGEL Admin: 10/23/22 11:45 Dose: 0.5 mg/min, 16.7 mls/hr Documented By: RONI Co-signed By: JOSE ANGEL Ioversol (Optiray 320 500ml) 120 ml IV ONCE ONE Stop: 10/23/22 09:52 Last Admin: 10/23/22 09:52 Dose: 120 ml Documented By: YEFRI Lorazepam (Lorazepam 1 Mg/1 Ml Syr) Confirm Administered Dose 1 mg .ROUTE .STK- MED ONE Stop: 10/23/22 07:07 Last Admin: 10/23/22 07:07 Dose: 1 mg Documented By: LEXI Metoprolol Tartrate (Metoprolol Tartrate 25 Mg Tab) 12.5 mg PO BID SUZE Stop: 11/22/22 09:44 Last Admin: 10/23/22 10:13 Dose: 12.5 mg Documented By: RONI Ondansetron HCl (Ondansetron Inj 2 Mg/Ml 2 Ml Vial) 4 mg IV NOW STA Stop: 10/23/22 05:10 Last Admin: 10/23/22 05:20 Dose: 4 mg Documented By: ESTUARDO Potassium Chloride (Potassium Chloride 10 Meq / 100ml Wtr) Confirm Administered Dose 10 meq IV .STK-MED ONE Stop: 10/23/22 05:38 Last Admin: 10/23/22 05:40 Dose: 10 meq Documented By: PHIL Potassium Chloride (Potassium Chloride Crtab 20 Meq Tabcr) 20 meq PO NOW STA Stop: 10/23/22 12:59 Last Admin: 10/23/22 13:16 Dose: 20 meq Documented By: WRS Imaging Data Radiologist's Impression: Abdomen/Pelvis CT 10/23/22 06:10 CT SCAN OF THE ABDOMEN AND PELVIS WITHOUT IV CONTRAST CLINICAL HISTORY: Generalized abdominal pain. Liver failure. COMPARISON STUDY: Abdominal CT dated 11/19/2021. TECHNIQUE: CT scan of the abdomen and pelvis is performed from the lung bases to the proximal femora. Images are reviewed in the axial, sagittal, and coronal planes. IV contrast was not administered for this examination. A dose lowering technique was utilized adhering to the principles of ALARA. FINDINGS: Lung bases: The heart is top normal in size and without pericardial effusion. The lung bases are clear noting dependent atelectasis. A small hiatal hernia is noted. Liver: The unenhanced liver is enlarged, measuring 28 cm in length. The liver demonstrates diffusely decreased attenuation consistent with severe steatosis. There is no intrahepatic biliary ductal dilatation. Gallbladder: Unremarkable. Spleen: Normal in size and attenuation. Pancreas: Unremarkable. Adrenal glands: Unremarkable. Kidneys: The unenhanced kidneys are normal in size and without hydronephrosis. There are at least 3 nonobstructing right renal calculi measuring up to 2 mm. A punctate nonobstructing calculus is noted in the left kidney. No ureteral stone is seen. There is no evidence of contour deforming renal mass lesion. There is mild nonspecific bilateral perinephric stranding. Abdominal vasculature: The abdominal aorta is normal in course and caliber. Bowel: There is no bowel obstruction. Residual enteric contrast is seen in the colon. The appendix is well-visualized and normal. Peritoneum: There is no intraperitoneal free air or abdominal ascites. There is a fat-containing umbilical hernia. Lymphadenopathy: None. Pelvic viscera: The bladder, prostate, and seminal vesicles are normal as visualized. Skeletal structures: No lytic or blastic lesions are seen. IMPRESSION: 1. No acute infectious or inflammatory findings are identified in the abdomen or pelvis. 2. Hepatomegaly and severe hepatic steatosis. 3. Bilateral nephrolithiasis. 4. Additional findings as above. ACT 112: Negative or not required by law. Electronically signed by: Rahul Galvin M.D. 10/23/2022 8:07 AM Chest CTA 10/23/22 06:10 CHEST CTA for PULMONARY ARTERIES CT DOSE: 1539.00 mGy.cm HISTORY: Atypical chest pain. Vomiting blood. TECHNIQUE: Multiaxial CT images of the chest were performed following the intravenous administration of contrast to evaluate the pulmonary arteries. Maximal intensity projection images were also obtained. A dose lowering technique was utilized adhering to the principles of ALARA. COMPARISON STUDY: None. FINDINGS: The central airways are patent. No pneumothorax. No pleural effusions. Mild dependent changes seen at the lung bases. Otherwise, no focal lung consolidations to suggest a pneumonia. No evidence for pulmonary edema. Partially visualized cervical spinal hardware is noted. No fractures within the visualized osseous structures. Normal thyroid gland. The heart is mildly enlarged. Severe hepatic steatosis is noted. There is a normal visualized spleen. Normal esophagus. No mediastinal or hilar lymphadenopathy. Normal caliber thoracic aorta with no evidence for a dissection. No filling defects w ithin the pulmonary arteries to suggest a pulmonary embolus. IMPRESSION: 1. No evidence for a pulmonary embolus. 2. Mild cardiomegaly. 3. Severe hepatic steatosis. This is better appreciated on the same day abdomen and pelvis CT. ACT 112: Negative or not required by law. Electronically signed by: Nestor Fung M.D. 10/23/2022 8:07 AM Chest X-Ray 10/23/22 06:16 SINGLE VIEW CHEST CLINICAL HISTORY: Dyspnea. FINDINGS: An AP, portable, upright chest radiograph is obtained. No prior studies are available for comparison at the time of dictation. The heart appears enlarged. There is pulmonary vascular congestion. Bilateral airspace opacities suggest edema. No large pleural effusion or pneumothorax is seen. The bony thorax is grossly intact. IMPRESSION: 1. The heart appears enlarged and there is evidence of fluid overload/congestive failure. 2. Bilateral airspace opacities likely represent pulmonary edema. Correlate clinically for evidence of a superimposed infectious/inflammatory pneumonitis. Radiographic follow-up to resolution is recommended. ACT 112: Negative or not required by law. Electronically signed by: Rahul Galvin M.D. 10/23/2022 6:24 AM Discharge Plan Visit Data Chief Complaint: Cardiac Assessment Stated Complaint: VOMITING,CHEST PAIN,VISION ISSUES ED Provider: Radha Mai Discharge Problem: History of torsades de pointes, Bilirubinemia, Hematemesis, Chest pain, Hypokalemia, Hypomagnesemia, Alcohol abuse Patient Disposition: Admitted As Inpatient Discharge Instructions Interventions: ED Discharge Assessment Last Done: 10/23/22 08:17 : Hematemesis Qualifiers: Nausea presence: with nausea Qualified Code(s): K92.0 - Hematemesis Chest pain Qualifiers: Chest pain type: other chest pain Qualified Code(s): R07.89 - Other chest pain
[2022-10-23 08:59] LABS: Albumin Level 3.7 gm/dl (3.4-5.0); Bilirubin,Total 8.9 mg/dl (0.2-1.0); Magnesium 2.1 mg/dl (1.7-2.4); Total Protein 5.7 gm/dl (6.0-8.3)
[2022-10-23] MEDS ORDERED: MAGNESIUM SULFATE / D5W 1 GM/100 ML BAG IV ONE (09:15)
[2022-10-23] MEDS: PANTOprazole 40 MG in SYRINGE 0 ML IV SCH ×2 (09:33→19:55)
[2022-10-23] MEDS: ICU Protocol for HYPERglycemia SCH ×3 (09:39→20:31)
[2022-10-23] MEDS ORDERED: METOPROLOL TARTRATE 25 MG TAB PO SCH (09:45)
[2022-10-23] MEDS ORDERED: Nursing to Pharmacy Communication SCH (09:45)
[2022-10-23] MEDS: THIAMINE HCL 500 MG in SODIUM CHLORIDE 0.9% 50 ML IV SCH ×2 (09:47→20:16)
[2022-10-23] MEDS ORDERED: OPTIRAY 320 500ml IV ONE (09:51)
[2022-10-23] MEDS: MULTIVITAMIN TAB PO SCH (10:13)
[2022-10-23 10:32] LABS: Appearance Urine Clear (Clear); Bacteria Urine Automated Negative (Negative); Blood Urine Negative (Negative); Color Urine Dark Yellow; Glucose Urine UA Negative (Negative); Ketones Urine 1+ (Negative); Leukocyte Esterase Urine Trace (Negative); Nitrite Urine Positive (Negative); Protein Urine 1+ (Negative); RBC Urine Automated 0-4 /hpf (0-4); Specific Gravity Urine > 1.045 (1.000-1.030); Urobilinogen Urine Negative (Negative)
[2022-10-23 10:33] LABS: Bilirubin Urine 2+ (Negative)
--- NOTE | 2022-10-23 10:36 | XCELERA ---
[id number]
--- NOTE | 2022-10-23 11:19 | Gastrointestinal Consultation ---
Date of Consultation October 23, 2022 Assessment & Plan (1) Alcohol use disorder: Discussed need to abstain 100% from alcohol moving forward He is not interested in inpatient or outpatient rehab programs at present (2) Abnormal LFTs: Will need full workup for chronic liver disease as an outpatient No signs of Fulminant hepatic failure at present, would recommend checking PT/INR every 6 hours x2. If INR increases significantly or patient develops encephalopathy, would consider transfer to tertiary care center with Liver transplant program. Discriminant Function does not meet criteria of corticosteroid/Trental therapy at present Add Hemochromatosis panel to pending bloodwork Further recommendations to follow above noted testing. Discussed case in detail with Dr. Aguirre of Cardiology and Dr. Landers of Critical Care medicine (3) Hematemesis: Recommend Protonix 40 mg IV BID at present If he has further overt GI bleeding, will perform EGD during this hospitalization, otherwise, will do this as an outpatient in the near future. History of Present Illness Reason for Consultation: Liver Failure Attending Physician: Sabrina Hernandez, DO History of Present Illness Talat Lopez is a 42 yo CM who presented to the ER today with complaints of chest pain, nausea, and vomiting over the past 4-5 days. He states that he did have multiple episodes of nausea with associated vomiting, and did notice a small amount of blood on at least 2 occasions. He stated that he did not have any viral symptoms prior to his chest pain, nausea or vomiting. He states that due to recurrent symptoms he was convinced by his to seek care in the ER. Upon arrival to the ER, he was noted to have hypokalemia, hypophosphatemia, hypomagnesemia, anemia with an H/H of 12.7/34.2, a ferritin level >3000 and abnormal LFT's with AST 248, ALT 133, Tbili 8.9, Direct Bili 5, and Alk phos 132. A CT scan of the abd/pelvis in the ER did show significant hepatic steatosis, and this was noted on a CT abd/pelvis last year as well. At one point during his workup in the ER, he did experience some chest pain and a "quivering of my chin and chest," and he was noted to have a short run of Torsades, which was treated with defib at 200 J, IV Magnesium, and IV amiodarone. He was subsequently underwent a normal Echocardiogram, and was admitted to the ICU. At the time I saw him, he states that he feels slightly better. He reports no chest pain, SOB, fevers, chills, nausea, or vomiting. He states he has not had any further emesis since his arrival, and states he has not had a BM in 3 days. He denies any history of GERD, and has never had an EGD. He does not have any family history of liver disease. He does drink excessively, up to 3-4 drinks daily. He did have a remote history of a DUI 20 years ago, but has never been in a rehab facility, participated in outpatient rehab, or suffered an alcohol withdrawal seizure or other symptoms. He states that he was told of fatty liver last year, and did increase his exercise and did watch his diet better, but did not have a significant weight loss. He denies any further complaints. Allergies Allergy/AdvReac Type Severity Reaction Status Date / Time No Known Allergies Allergy Mild Unverified 07/22/21 08:30 Home Medications Medication Instructions Recorded Confirmed Type Cyclobenzaprine Hcl (Flexeril *) 10 mg PO TID ##21 08/28/09 07/22/21 Rx Hydrocodone/Acetaminophen 1 - 2 tab PO Q6HR PRN ##20 08/28/09 07/22/21 Rx 5MG/500MG (Vicodin 5MG/500MG) None (Patient States No Home Meds) ##0 08/28/09 07/22/21 History diazepam 5 mg tablet (Valium) 5 mg PO TID PRN muscle spasm #14 07/21/21 07/22/21 Rx tabs methylprednisolone 4 mg tablets in See Rx Instructions .Route 07/21/21 07/22/21 Rx a dose pack (Medrol (Obdulio)) .COMPLEX #21 ea Patient History Medical History De Quervain's syndrome (tenosynovitis) Social History Smoking Status: Former smoker Tobacco Type: Smokeless Tobacco (Dip or Chew) Second Hand Exposure: No; Hx Alcohol Use: Yes Alcohol type: hard liquor Hx Substance Use: No Preferred Language: Telugu Communication Ability: Effective 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 Beliefs That Will Affect Care: None Current Living Situation: Spouse Feels Safe at Home: Yes Assistive Devices: None Physical Exam Constitutional: WD/WN, vitals as above Eyes: sclerae not anicteric ENMT: external ear and nose normal, oropharynx normal Neck: normal visual inspection Respiratory: normal respiratory effort, lungs clear to auscultation Cardiovascular: RRR, no murmur, no edema Gastrointestinal (Abdomen): normal bowel sounds, soft, nontender, no hepatosplenomegaly Skin: + jaundice Psychiatric: A+Ox3, euthymic affect Results & Data ([facility]) Vital Signs (Past 12 Hours) Vital Signs Temp Pulse Pulse Pulse Resp BP BP 10/23/22 11:00 83 23 166/99 H 10/23/22 10:00 102 H 20 153/104 H 10/23/22 09:53 98 H 19 166/104 H 10/23/22 08:08 86 10/23/22 08:08 10/23/22 08:08 37.1 C 82 18 161/98 H 10/23/22 09:08 93 H 16 164/101 H 10/23/22 09:06 92 H 21 172/102 H 10/23/22 08:08 88 23 161/98 H 10/23/22 08:17 10/23/22 07:12 10/23/22 07:11 96 H 25 H 10/23/22 07:09 92 H 22 148/97 H 10/23/22 06:29 97 H 19 138/100 10/23/22 06:05 106 H 22 135/102 H 10/23/22 05:09 91 H 10/23/22 04:46 93 H 18 170/104 H 10/23/22 04:49 36.6 C 128 H 20 120/79 Pulse Ox O2 Del Method O2 Flow Rate 10/23/22 11:00 94 Room Air 10/23/22 10:00 94 Room Air 10/23/22 09:53 95 Room Air 10/23/22 08:08 10/23/22 08:08 Nasal Cannula 3 10/23/22 08:08 98 Nasal Cannula 3 10/23/22 09:08 97 Nasal Cannula 3 10/23/22 09:06 98 Nasal Cannula 3 10/23/22 08:08 96 Nasal Cannula 3 10/23/22 08:17 Nasal Cannula 2 10/23/22 07:12 94 Nasal Cannula 2 10/23/22 07:11 87 L Room Air 10/23/22 07:09 92 10/23/22 06:29 97 Room Air 10/23/22 06:05 98 Non-rebreather 10/23/22 05:09 96 Room Air 10/23/22 04:46 96 Room Air 10/23/22 04:49 96 Room Air PG Care Time/CCT Total # of Minutes Spent Total Time Spent with Patient: Total time spent is greater than 50% in coordination of care (as documented) at patient's floor/unit and/or counseling patient: Coding Level of Care Code 99506 Inpt Consult Level 5 Diagnoses Alcohol use disorder F19.90 Abnormal LFTs R79.89 Hematemesis K92.0
[2022-10-23 11:22] LABS: Amphetamines+Metham, Urine Neg (Neg); Barbiturates, Urine Neg (Neg); Benzodiazepine, Urine Neg (Neg); Cocaine, Urine Neg (Neg); MDMA (Ecstacy), Urine Neg (Neg); Methadone, Urine Neg (Neg); Opiate, Urine Neg (Neg); Phencyclidine, Urine Neg (Neg)
[2022-10-23] MEDS ORDERED: 0.2 MICRON FILTER SET 1 EACH IV ONE (11:41)
[2022-10-23] MEDS ORDERED: AMIODARONE / D5W 360 MG/200 ML BAG IV SCH (11:45)
[2022-10-23 12:15] LABS: Hemoglobin 12.6 g/dl (14.0-18.0)
[2022-10-23 12:26] LABS: INR 1.4 (0.9-1.1); Prothrombin Time 14.3 Seconds (9.0-12.0)
[2022-10-23 12:47] LABS: BUN Creatinine Ratio 15.3 (10-20); Calcium 8.2 mg/dl (8.5-10.1); Creatinine Clr Calc Pharmacy 139.4 ml/min; Est GFR (African American) 131.5 ml/min; Est GFR (Non-African American) 113.5 ml/min; Magnesium 2.4 mg/dl (1.7-2.4); Phosphorus 1.9 mg/dl (2.5-4.9)
[2022-10-23] MEDS ORDERED: POTASSIUM CHLORIDE CRTAB 20 MEQ TABCR PO STA ×2 (12:58→18:50)
--- NOTE | 2022-10-23 12:59 | Cardiology Consultation ---
Date of Consultation October 23, 2022 Assessment & Plan (1) Torsades de pointes: -intermittent episodes noted on the monitor while in the emergency room. -responded to defibrillation, intravenous magnesium, an intravenous amiodarone. -discussed with Dr. Schneider who feels amiodarone is not the best medication at this time. -he feels that correcting the electrolytes is most important. -avoid bradycardia, consider isoproterenol or a temporary pacing wire if necessary. -follow EKGs closely. -Dr. Schneider will see patient on Tuesday morning. (2) Prolonged QT interval: -this is either acquired or congenital. -suspect this is acquired due to his significant electrolyte abnormalities at time of presentation. -no old EKG for comparison. -only medications as an outpatient are Tylenol and Flonase. History of Present Illness Attending Physician: Jameson Palmer MD History of Present Illness Mr. Lopez is a 42-year-old male admitted earlier today with torsade de pointe that required electrical cardioversion. This consultation was ordered to assist in his cardiac management. The patient was in his usual state of health until approximately 1 week prior to presentation. He began to notice intermittent nausea with vomiting. His oral intake was very reduced. He did have 2 episodes of hematemesis. He was also experiencing intermittent episodes of palpitations which she felt was related to anxiety. Approximately 3:00 a.m. this morning, the patient noticed intermittent episodes of palpitations. He also felt extremely fatigued and nauseated. He was brought to the emergency room by his . On arrival here, he had several brief episodes of torsade de pointe. He then had a sustained episode that required electrical cardioversion with 200 joules. The patient has no memory of that defibrillation. He is also given intravenous magnesium and amiodarone. He has remained in sinus rhythm since that time. Initial evaluation here noted significant electrolyte abnormalities including a potassium 3.2, magnesium 1.6, phosphorus of 1.3, and a calcium of 8.3. Initial EKG noted a QTC of 605 milliseconds. The patient has never known of a cardiac event. He has never been diagnosed with a long QT syndrome. He has never experienced exertional chest pain or limiting dyspnea. He further denies syncope, presyncope, PND, orthopnea, lower extremity edema, and claudication. Currently, patient is resting comfortably in bed without complaints. Past medical and surgical history 1. DeQuervain's syndrome 2. 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 Allergies Allergy/AdvReac Type Severity Reaction Status Date / Time No Known Allergies Allergy Mild Unverified 07/22/21 08:30 Home Medications Medication Instructions Recorded Confirmed Type Cyclobenzaprine Hcl (Flexeril *) 10 mg PO TID ##21 08/28/09 07/22/21 Rx Hydrocodone/Acetaminophen 1 - 2 tab PO Q6HR PRN ##20 08/28/09 07/22/21 Rx 5MG/500MG (Vicodin 5MG/500MG) None (Patient States No Home Meds) ##0 08/28/09 07/22/21 History diazepam 5 mg tablet (Valium) 5 mg PO TID PRN muscle spasm #14 07/21/21 07/22/21 Rx tabs methylprednisolone 4 mg tablets in See Rx Instructions .Route 07/21/21 07/22/21 Rx a dose pack (Medrol (Obdulio)) .COMPLEX #21 ea Patient History Medical History De Quervain's syndrome (tenosynovitis) Social History Smoking Status: Former smoker Tobacco Type: Smokeless Tobacco (Dip or Chew) Second Hand Exposure: No; Hx Alcohol Use: Yes Alcohol type: hard liquor Hx Substance Use: No Preferred Language: Citizen Of [place] Communication Ability: Effective 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 HEENT exam is negative. Neck is supple with full carotid upstrokes. There are no carotid bruits. Jugular venous pressure is flat at 90. There is no thyromegaly. Cardiovascular exam reveals a regular rhythm with a normal S1 and S2. No S3, S4, or murmurs are noted. Lungs are clear without rales, rhonchi, or wheezes. Abdomen is soft and nontender without bruits. Extremities reveal intact radial artery and posterior tibial pulses bilaterally. There is no peripheral edema. Results & Data ([facility]) Vital Signs (Past 12 Hours) Vital Signs Temp Pulse Pulse Pulse Resp BP BP 10/23/22 12:00 37.1 C 10/23/22 12:00 74 23 159/105 H 10/23/22 11:24 81 19 160/99 H 10/23/22 11:00 83 23 166/99 H 10/23/22 10:00 102 H 20 153/104 H 10/23/22 09:53 98 H 19 166/104 H 10/23/22 08:08 86 10/23/22 08:08 10/23/22 08:08 37.1 C 82 18 161/98 H 10/23/22 09:08 93 H 16 164/101 H 10/23/22 09:06 92 H 21 172/102 H 10/23/22 08:08 88 23 161/98 H 10/23/22 08:17 10/23/22 07:12 10/23/22 07:11 96 H 25 H 10/23/22 07:09 92 H 22 148/97 H 10/23/22 06:29 97 H 19 138/100 10/23/22 06:05 106 H 22 135/102 H 10/23/22 05:09 91 H 10/23/22 04:46 93 H 18 170/104 H 10/23/22 04:49 36.6 C 128 H 20 120/79 Pulse Ox O2 Del Method O2 Flow Rate 10/23/22 12:00 10/23/22 12:00 91 Room Air 10/23/22 11:24 94 Room Air 10/23/22 11:00 94 Room Air 10/23/22 10:00 94 Room Air 10/23/22 09:53 95 Room Air 10/23/22 08:08 10/23/22 08:08 Nasal Cannula 3 10/23/22 08:08 98 Nasal Cannula 3 10/23/22 09:08 97 Nasal Cannula 3 10/23/22 09:06 98 Nasal Cannula 3 10/23/22 08:08 96 Nasal Cannula 3 10/23/22 08:17 Nasal Cannula 2 10/23/22 07:12 94 Nasal Cannula 2 10/23/22 07:11 87 L Room Air 10/23/22 07:09 92 10/23/22 06:29 97 Room Air 10/23/22 06:05 98 Non-rebreather 10/23/22 05:09 96 Room Air 10/23/22 04:46 96 Room Air 10/23/22 04:49 96 Room Air Laboratory Results CBC notes hemoglobin 12.7, hematocrit 34.2, white count 5.8, platelet count [id number]. Electrolytes note a sodium of 130, potassium 3.2, chloride 87, bicarb 26, BUN 13, creatinine 0.74, and glucose of 140. Magnesium level is 1.6 with a phosphorus level of 1.3 and calcium of 8.3. High sensitivity troponin is 20.2. BNP is normal at 68. INR is elevated 1.3. AST is 248 with an ALT of 133. Diagnostic Findings EKG notes normal sinus rhythm with a nonspecific ST abnormality and prolonged QT interval at 6 line 5. Milliseconds. Chest x-ray notes cardiomegaly and fluffy infiltrates bilaterally. PG Care Time/CCT Total # of Minutes Spent Total Time Spent with Patient: Total time spent is greater than 50% in coordination of care (as documented) at patient's floor/unit and/or counseling patient: Coding Level of Care Code 62446 Inpt Consult Level 5 Diagnoses Torsades de pointes I47.21 Prolonged QT interval R94.31
--- NOTE | 2022-10-23 14:26 | Hospitalist Progress Note ---
Date of Service October 23, 2022 Assessment & Plan (1) Torsades de pointes: Plan: Case discussed with cardiology. Amiodarone drip has been discontinued. We will continue to correct electrolyte disturbance. Serial EKGs ordered. (2) Electrolyte abnormality: Plan: Hypokalemia and hypomagnesemia are being corrected. Serial labs ordered. (3) Abnormal LFTs: Plan: Patient with mixed hepatocellular and obstructive pattern on LFTs. Marked increase in total bilirubin at 10.1. Patient does drink daily. Last drink was 1 week ago. We will continue to monitor LFTs daily and obtain CT scan of the abdomen. NAC per protocol initiated by MICU (4) Metabolic acidosis: Plan: Initial anion gap of 19. Anticipate resolution with continue treatment. Serial labs (5) Hematemesis: Plan: Patient reports hematemesis. Concern for possible advanced hepatic disease given bilirubin. Protonix 40mg IV BID. Consider Octreotide gtt pending results of CT Abdomen. GI Consultation appreciated. Monitor CBC (6) Alcohol use disorder: Plan: Patient with frequent EtOH use. Probably accounting for liver abnormalities. Last drink was 1 week ago. Monitor for EtOH withdrawal, DTs. AWSS protocol Plan Anticipate eventual discharge to home Admission and Anticipated Discharge Date Admission Date: October 23, 2022 Subjective Alert and oriented. No acute distress. is at the bedside. Case discussed with cardiology. Prolonged QT interval is probable cause of torsades. Amiodarone drip has been discontinued. We will continue to correct electrolyte disturbance and monitor serial EKGs Review of Systems Review of Systems: Constitutional-no fever or chills ENT-no blurred vision, no double vision, no epistaxis, no sore throat Respiratory-no cough, no wheezing, no shortness of breath Cardiac-no palpitations, no chest pain, no syncope GI-the patient has had some nausea and vomiting over the past few days but no diarrhea, melena, hematochezia -no urinary retention, no urinary incontinence, no dysuria, no hematuria Musculoskeletal-no joint pain, no muscle tenderness Skin-no bruising, no rashes, no pruritus Neuro-no isolated weakness, no paresthesia, no weakness Psych-no depression, no anxiety Physical Exam Physical Exam: General-alert and oriented x3, no fevers, no chills HEENT-head atraumatic and normocephalic, pupils equal and reactive to light, extraocular muscles intact Neck-no lymphadenopathy or thyromegaly, trachea midline Chest-clear to auscultation percussion. No rales wheezing or rhonchi Cardiac-regular rate and rhythm, normal S1 and S2, no murmurs Abdomen-normal bowel sounds, nontender, no hepatosplenomegaly Extremities-no cyanosis, clubbing, or edema Neuro-cranial nerves II through XII intact, motor and sensory function within normal limits, strength symmetrical , no focal deficits Psych-normal affect, normal mood Results & Data Results & Data ([facility]) Vital Signs (Past 12 Hours) Vital Signs Temp Pulse Pulse Pulse Resp BP BP 10/23/22 13:48 87 17 164/94 H 10/23/22 13:00 90 15 147/98 H 10/23/22 12:00 37.1 C 10/23/22 12:00 74 23 159/105 H 10/23/22 11:24 81 19 160/99 H 10/23/22 11:00 83 23 166/99 H 10/23/22 10:00 102 H 20 153/104 H 10/23/22 09:53 98 H 19 166/104 H 10/23/22 08:08 86 10/23/22 08:08 10/23/22 08:08 37.1 C 82 18 161/98 H 10/23/22 09:08 93 H 16 164/101 H 10/23/22 09:06 92 H 21 172/102 H 10/23/22 08:08 88 23 161/98 H 10/23/22 08:17 10/23/22 07:12 10/23/22 07:11 96 H 25 H 10/23/22 07:09 92 H 22 148/97 H 10/23/22 06:29 97 H 19 138/100 10/23/22 06:05 106 H 22 135/102 H 10/23/22 05:09 91 H 10/23/22 04:46 93 H 18 170/104 H 10/23/22 04:49 36.6 C 128 H 20 120/79 Pulse Ox O2 Del Method O2 Flow Rate 10/23/22 13:48 95 Room Air 10/23/22 13:00 93 Room Air 10/23/22 12:00 10/23/22 12:00 91 Room Air 10/23/22 11:24 94 Room Air 10/23/22 11:00 94 Room Air 10/23/22 10:00 94 Room Air 10/23/22 09:53 95 Room Air 10/23/22 08:08 10/23/22 08:08 Nasal Cannula 3 10/23/22 08:08 98 Nasal Cannula 3 10/23/22 09:08 97 Nasal Cannula 3 10/23/22 09:06 98 Nasal Cannula 3 10/23/22 08:08 96 Nasal Cannula 3 10/23/22 08:17 Nasal Cannula 2 10/23/22 07:12 94 Nasal Cannula 2 10/23/22 07:11 87 L Room Air 10/23/22 07:09 92 10/23/22 06:29 97 Room Air 10/23/22 06:05 98 Non-rebreather 10/23/22 05:09 96 Room Air 10/23/22 04:46 96 Room Air 10/23/22 04:49 96 Room Air PG Care Time/CCT Total # of Minutes Spent Total Time Spent with Patient: Total time spent is greater than 50% in coordination of care (as documented) at patient's floor/unit and/or counseling patient: Coding Level of Care Code 97896 Subseq Hosp Care Lvl 3 Diagnoses Torsades de pointes I47.21 Electrolyte abnormality E87.8 Abnormal LFTs R79.89 Metabolic acidosis E87.20 Hematemesis K92.0 Alcohol use disorder F19.90
--- NOTE | 2022-10-23 14:38 | Electrocardiogram Report ---
Test Reason : Blood Pressure : / mmHG Vent. Rate : 094 BPM Atrial Rate : 094 BPM P-R Int : 144 ms QRS Dur : 098 ms QT Int : 484 ms P-R-T Axes : 051 050 034 degrees QTc Int : 605 ms Sinus rhythm with marked sinus arrhythmia Nonspecific ST abnormality Prolonged QT Abnormal ECG No previous ECGs available Confirmed by Esteban Aguirre ([id number]) on 10/23/2022 2:38:27 PM Referred By: REFERRED SELF Confirmed By:Esteban Aguirre
--- NOTE | 2022-10-23 14:44 | Electrocardiogram Report ---
Test Reason : Blood Pressure : / mmHG Vent. Rate : 101 BPM Atrial Rate : 101 BPM P-R Int : 152 ms QRS Dur : 102 ms QT Int : 430 ms P-R-T Axes : 053 051 047 degrees QTc Int : 557 ms Sinus tachycardia Prolonged QT Abnormal ECG When compared with ECG of 23-OCT-2022 04:58, (unconfirmed) ST no longer depressed in Anterior leads Confirmed by Esteban Aguirre ([id number]) on 10/23/2022 2:43:46 PM Referred By: REFERRED SELF Confirmed By:Esteban Aguirre
--- NOTE | 2022-10-23 14:56 | Electrocardiogram Report ---
Test Reason : Blood Pressure : / mmHG Vent. Rate : 075 BPM Atrial Rate : 075 BPM P-R Int : 164 ms QRS Dur : 106 ms QT Int : 484 ms P-R-T Axes : 044 037 033 degrees QTc Int : 540 ms Normal sinus rhythm Possible Left atrial enlargement Prolonged QT Abnormal ECG When compared with ECG of 23-OCT-2022 06:02, (unconfirmed) No significant change was found Confirmed by Esteban Aguirre ([id number]) on 10/23/2022 2:56:04 PM Referred By: REFERRED SELF Confirmed By:Esteban Aguirre
[2022-10-23 18:27] LABS: INR 1.4 (0.9-1.1); Prothrombin Time 14.5 Seconds (9.0-12.0)
[2022-10-23 18:36] LABS: Creatinine Clr Calc Pharmacy 125.5 ml/min; Est GFR (African American) 125.9 ml/min; Est GFR (Non-African American) 108.6 ml/min; Potassium 2.9 mmol/L (3.5-5.1)
[2022-10-23 18:43] LABS: Phosphorus 1.4 mg/dl (2.5-4.9)
[2022-10-23] MEDS ORDERED: POTASSIUM CHLORIDE / WTR 10 MEQ/100 ML PLCT IV SCH (18:45)
[2022-10-23] MEDS: ICU ELECTROLYTE REPLACEMENT PROTOCOL SCH (18:54)
[2022-10-23] MEDS ORDERED: POTASSIUM CHLORIDE 40 MEQ in NORMOSOL-R 1,000 ML IV SCH (18:59)
[2022-10-23] MEDS: METOPROLOL TARTRATE 25 MG TAB PO SCH (19:56)
[2022-10-23] MEDS ORDERED: Ativan IV Alcohol Withdrawal--Active Protocol IV PRN (21:51)
[2022-10-23] MEDS ORDERED: LORazepam 2 MG in SYRINGE 0 ML IV PRN (22:02)
[2022-10-23] MEDS ORDERED: LORazepam 1 MG in SYRINGE 0 ML IV PRN (22:02)
[2022-10-23] MEDS ORDERED: LORazepam 3 MG in SYRINGE 0 ML IV PRN (22:02)
[2022-10-24 03:11] LABS: BUN Creatinine Ratio 6.9 (10-20); Calcium 8.1 mg/dl (8.5-10.1); Creatinine Clr Calc Pharmacy 139.4 ml/min; Est GFR (African American) 131.5 ml/min; Est GFR (Non-African American) 113.5 ml/min; Magnesium 2.2 mg/dl (1.7-2.4); Phosphorus 3.2 mg/dl (2.5-4.9); Potassium 3.9 mmol/L (3.5-5.1)
[2022-10-24] MEDS ORDERED: POTASSIUM CHLORIDE / WTR 10 MEQ/100 ML PLCT IV ONE (03:30)
[2022-10-24] MEDS: ICU ELECTROLYTE REPLACEMENT PROTOCOL SCH (04:11)
[2022-10-24 04:47] LABS: Basophils # (auto) 0.04 K/uL (0-0.2); Basophils % (auto) 0.7 %; Eosinophils # (auto) 0.02 K/uL (0-0.50); Eosinophils % (auto) 0.4 %; Hematocrit (blood only) 34.8 % (40.1-51.0); Hemoglobin 12.6 g/dl (14.0-18.0); Immature Granulocytes # (auto) 0.01 K/uL (0.00-0.02); Immature Granulocytes % (auto) 0.2 %; Lymphocytes # (auto) 1.01 K/uL (1.2-3.4); Mean Corpuscular Hemoglobin 35.9 pg (25.0-34.0); Mean Corpuscular Hgb Conc 36.2 g/dL (32.0-36.0); Mean Corpuscular Volume 99.1 fL (80.0-100.0); Mean Platelet Volume 11.9 fL (9.4-12.4); Monocytes # (auto) 0.45 K/uL (0.24-0.82); Neutrophils # (auto) 4.07 K/uL (1.4-6.5); Neutrophils % (auto) 72.7 %; Nucleated RBC # (auto) 0.02 K/uL (0-0); Nucleated RBC % (auto) 0.4 %; Platelet Count 126 K/uL (130-400); RDW Coefficient of Variation 12.6 % (11.5-14.5); Red Blood Count 3.51 M/uL (4.63-6.08)
[2022-10-24 05:29] LABS: INR 1.5 (0.9-1.1); Partial Thromboplastin Time 26.9 Seconds (21.0-31.0); Prothrombin Time 15.7 Seconds (9.0-12.0)
[2022-10-24 05:39] LABS: Albumin Level 3.5 gm/dl (3.4-5.0); Bilirubin Direct 6.4 mg/dl (0-0.2); Bilirubin,Total 10.8 mg/dl (0.2-1.0); Total Protein 5.2 gm/dl (6.0-8.3)
--- NOTE | 2022-10-24 07:20 | Critical Care Progress Note ---
Date of Service October 24, 2022 Assessment & Plan (1) Torsades de pointes: (2) Hematemesis: (3) Alcohol use disorder: (4) Transaminitis: (5) Hypertension: (6) Abdominal pain: (7) Bilirubinemia: (8) Electrolyte abnormality: (9) DESIRE (obstructive sleep apnea): Plan Reason Critically Ill: 42yo male presenting with complaint of nausea and vomiting, decreased oral intake. Patient had an episode of torsades de pointes in the ER, s/p defibrillation at 200J and administration of IV Magnesium and Amiodarone. Neuro - [facility] ICU: Negative --History of heavy alcohol use Monitor for signs of withdrawal Cardiac - 2D echo 10/23/2022: EF 60-65%, RV normal in size and function, grade 1 diastolic dysfunction --Torsades de point Likely from electrolyte abnormality along with prolonged QTC QTC 428 on 10/24/2022 Keep magnesium greater than 2, phosphorus greater than 3, potassium greater than 4 --Hypertension Beta-travis started Respiratory - -- Active cigar smoker Also history of [id number] history of smoking CT chest 10/23/2022: No signs of PE, mild dependent atelectasis No mediastinal adenopathy --DESIRE Sleep study done in 2019 showed need of CPAP of 11 Was not able to tolerate CPAP mask Importance of using CPAP expended the patient in depth GI - -- Hematemesis H&H is stable Continue to monitor H&H Antiemetic as needed -- Transaminitis with elevated bilirubin, acute liver injury Discriminant factor 18. Does not qualify for prednisone. Continue to monitor Ammonia within normal limit S/p NAC infusion CT abdomen pelvis 10/23/2022: Hepatomegaly with severe hepatic steatosis, bilateral nephrolithiasis RENAL/LYTES - -- S/p HAGMA Delta-delta: Negative, mixed metabolic acidosis plus alkalosis Acidosis is like a from lactate, alkalosis could be from vomiting, patient also has a component of respiratory alkalosis on top of metabolic acidosis Toxicology negative for salicylates and normal acetaminophen level of 18 ABG pH 7.65 -- Hyponatremia with hypochloremia Continue to monitor - No active issues ENDO - -- ICU hypoglycemia protocol HEME - --Coagulopathy Likely from alcohol abuse Vitamin K 5 mg given 10/24/2022 --Thrombocytopenia Likely from alcohol abuse Continue to monitor ID - -- No active issues --Prophylaxis VTE: IPC GI: Pantoprazole twice daily Lines: Peripheral Diet: Cardiac diet Plan: In/out +529, urine output 7.2 L BMP from 2 AM today shows last within normal limit. I will repeat BMP mag phos now. Vitamin K IV 5 mg for coagulopathy H&H is stable. Would continue with Protonix Twice daily. Continue with beta-travis 25 twice daily of metoprolol Patient's bilirubin is still around 10. With direct bili being 6.1. Continue to monitor Patient hemodynamically stable to be downgrade to medical floor Please note the above document was generated using voice recognition software. It may contain grammatical, syntax or spelling errors.Any formal questions or concerns about the content, text or information contained within the body of this dictation should be directly addressed to the provider for clarification. Admission and Anticipated Discharge Date Admission Date: October 23, 2022 Subjective Patient seen and examined at bedside. No acute distress, no adverse events overnight. Normal hemoptysis since coming to the hospital Nausea significant improved Was able to tolerate clear liquids yesterday. Will advance diet today. Abdominal pain, no headache, no nausea, no vomiting Has been urinating well. Denies any jitteriness or restlessness Review of Systems Review of Systems: All systems reviewed & are unremarkable except as noted in Subjective Physical Exam Physical Exam: Constitutional: No acute distress HEENT: EOMI, PERRLA Respiratory system: Good air entry bilaterally, no wheeze, rhonchi, mild crackles bilateral lower lobes CVS: S1-S2 positive, no murmurs or gallops, tachycardia Abdomen: Soft, mild epigastric tenderness, no rebound, nondistended, positive bowel sounds x4, hepatomegaly Extremities: +2 pulses bilaterally radialis/ dorsalis pedis, no cyanosis, no edema Neuro: Awake alert oriented x3 Psych: Normal mood and affect G/U: No [place] Skin: no rashes, warm and dry Lymphatic: no cervical or axillary lymphadenopathy Results & Data Results & Data ([facility]) Vital Signs (Past 12 Hours) Vital Signs Temp Pulse Resp BP Pulse Ox O2 Del Method O2 Flow Rate 10/24/22 06:00 86 18 139/94 94 Nasal Cannula 2 10/24/22 05:00 75 17 137/91 95 Nasal Cannula 2 10/24/22 04:00 37.2 C 74 18 145/85 H 94 Nasal Cannula 2 10/24/22 03:00 75 22 147/99 H 96 Nasal Cannula 2 10/24/22 02:00 76 21 142/95 H 95 Nasal Cannula 2 10/24/22 01:00 75 14 142/91 H 95 Nasal Cannula 2 10/24/22 00:00 37.6 C H 81 15 147/98 H 94 Nasal Cannula 2 10/23/22 23:00 77 21 130/78 95 Nasal Cannula 2 10/23/22 22:00 78 14 138/89 93 Room Air 10/23/22 21:00 79 15 139/91 92 Room Air 10/23/22 20:00 37.4 C 82 17 152/96 H 92 Room Air Laboratory Results 10/24/22 02:39 10/24/22 02:39 Coding Level of Care Code 06058 Subseq Hosp Care Lvl 3 Diagnoses Torsades de pointes I47.21 Hematemesis K92.0 Alcohol use disorder F19.90 Transaminitis R74.01 Hypertension I10 Abdominal pain R10.9 Bilirubinemia E80.6 Electrolyte abnormality E87.8 DESIRE (obstructive sleep apnea) G47.33
[2022-10-24] MEDS ORDERED: PHYTONADIONE 5 MG in DEXTROSE 5% 50 ML IV ONE (08:30)
[2022-10-24] MEDS: METOPROLOL TARTRATE 25 MG TAB PO SCH ×2 (08:36→20:52)
[2022-10-24] MEDS: MULTIVITAMIN TAB PO SCH (08:36)
[2022-10-24] MEDS: PANTOprazole 40 MG in SYRINGE 0 ML IV SCH ×2 (08:37→20:52)
[2022-10-24] MEDS: THIAMINE HCL 500 MG in SODIUM CHLORIDE 0.9% 50 ML IV SCH ×2 (08:38→20:52)
[2022-10-24 08:42] LABS: Albumin Level 3.8 gm/dl (3.4-5.0); BUN Creatinine Ratio 6.1 (10-20); Bilirubin,Total 11.5 mg/dl (0.2-1.0); Calcium 8.8 mg/dl (8.5-10.1); Creatinine Clr Calc Pharmacy 134.9 ml/min; Est GFR (African American) 124.6 ml/min; Est GFR (Non-African American) 107.5 ml/min; Globulin 1.9 gm/dl (2.5-4.0); Phosphorus 1.6 mg/dl (2.5-4.9); Potassium 3.8 mmol/L (3.5-5.1); Total Protein 5.7 gm/dl (6.0-8.3)
[2022-10-24] MEDS ORDERED: POTASSIUM CHLORIDE CRTAB 20 MEQ TABCR PO STA (08:58)
[2022-10-24] MEDS ORDERED: SODIUM PHOSPHATE 3 MMOL/1 ML INFUSION IV STA (08:59)
[2022-10-24] MEDS ORDERED: Nursing to Pharmacy Communication SCH (09:15)
[2022-10-24] MEDS: ICU Protocol for HYPERglycemia SCH (09:18)
[2022-10-24] MEDS ORDERED: SODIUM PHOSPHATE 30 MMOL in SODIUM CHLORIDE 0.9% 500 ML IV ONE (09:30)
[2022-10-24] MEDS ORDERED: LORazepam 3 MG in SYRINGE 0 ML IV PRN (10:11)
[2022-10-24] MEDS ORDERED: LORazepam 2 MG in SYRINGE 0 ML IV PRN (10:11)
[2022-10-24] MEDS ORDERED: LORazepam 1 MG in SYRINGE 0 ML IV PRN (10:11)
[2022-10-24] MEDS ORDERED: Ativan IV Alcohol Withdrawal--Active Protocol IV PRN (10:11)
--- NOTE | 2022-10-24 10:46 | Cardiology Progress Note ---
Date of Service October 24, 2022 Assessment & Plan (1) Torsades de pointes: Plan: -intermittent episodes noted in the emergency room. -responded to defibrillation, intravenous magnesium, an intravenous amiodarone. -continue correcting electrolytes. -avoid bradycardia, consider isoproterenol or a temporary pacing wire if necessary. -EKG this morning still notes a prolonged QT interval. -Dr. Schneider will see patient tomorrow. (2) Prolonged QT interval: Plan: -either acquired or congenital. -suspect this is acquired due to his significant electrolyte abnormalities at time of presentation. -no old EKG available for comparison. -only medications as an outpatient are Tylenol and Flonase. Admission and Anticipated Discharge Date Admission Date: October 23, 2022 Subjective The patient is resting comfortably in bed without complaints of chest pain dyspnea, palpitations or syncope. His is at the bedside. We have discussed his case in detail. Physical Exam Physical Exam: In general this is a well-developed well-nourished white male in no acute distress. HEENT exam is negative. Neck is supple with full carotid upstrokes. There are no carotid bruits. No JVD. There is no thyromegaly. Cardiovascular exam reveals a regular rhythm with a normal S1 and S2. No S3, S4, or murmurs are noted. Lungs are clear without rales, rhonchi, or wheezes. Abdomen is soft and nontender without bruits. Extremities reveal intact radial artery and posterior tibial pulses bilaterally. There is no peripheral edema. Results & Data ([facility]) Vital Signs (Past 12 Hours) Vital Signs Temp Pulse Pulse Resp BP BP Pulse Ox 10/24/22 10:00 98 H 18 144/98 H 95 10/24/22 09:26 92 H 16 140/90 92 10/24/22 09:00 99 H 22 133/91 91 10/24/22 08:32 92 H 24 155/86 H 94 10/24/22 08:00 102 H 24 124/86 90 10/24/22 07:51 113 H 16 131/86 93 10/24/22 07:00 84 21 147/98 H 92 10/24/22 08:00 10/24/22 08:00 37.2 C 100 H 23 124/86 91 10/24/22 07:00 84 10/24/22 06:00 86 18 139/94 94 10/24/22 05:00 75 17 137/91 95 10/24/22 04:00 37.2 C 74 18 145/85 H 94 10/24/22 03:00 75 22 147/99 H 96 10/24/22 02:00 76 21 142/95 H 95 10/24/22 01:00 75 14 142/91 H 95 10/24/22 00:00 37.6 C H 81 15 147/98 H 94 10/23/22 23:00 77 21 130/78 95 O2 Del Method O2 Flow Rate 10/24/22 10:00 Room Air 10/24/22 09:26 Room Air 10/24/22 09:00 Room Air 10/24/22 08:32 Room Air 10/24/22 08:00 Room Air 10/24/22 07:51 Room Air 10/24/22 07:00 Room Air 10/24/22 08:00 Room Air 10/24/22 08:00 Room Air 10/24/22 07:00 10/24/22 06:00 Nasal Cannula 2 10/24/22 05:00 Nasal Cannula 2 10/24/22 04:00 Nasal Cannula 2 10/24/22 03:00 Nasal Cannula 2 10/24/22 02:00 Nasal Cannula 2 10/24/22 01:00 Nasal Cannula 2 10/24/22 00:00 Nasal Cannula 2 10/23/22 23:00 Nasal Cannula 2 PG Care Time/CCT Total # of Minutes Spent Total Time Spent with Patient: Total time spent is greater than 50% in coordination of care (as documented) at patient's floor/unit and/or counseling patient: Coding Level of Care Code 79833 Subseq Hosp Care Lvl 3 Diagnoses Torsades de pointes I47.21 Prolonged QT interval R94.31
[2022-10-24] MEDS ORDERED: POTASSIUM CHLORIDE CRTAB 20 MEQ TABCR PO SCH (11:00)
--- NOTE | 2022-10-24 11:17 | Electrocardiogram Report ---
Test Reason : Blood Pressure : / mmHG Vent. Rate : 079 BPM Atrial Rate : 079 BPM P-R Int : 166 ms QRS Dur : 106 ms QT Int : 548 ms P-R-T Axes : 026 054 047 degrees QTc Int : 628 ms Normal sinus rhythm Prolonged QT Abnormal ECG When compared with ECG of 23-OCT-2022 13:07, QT has lengthened Confirmed by Esteban Aguirre ([id number]) on 10/24/2022 11:16:50 AM Referred By: REFERRED SELF Confirmed By:Esteban Aguirre
--- NOTE | 2022-10-24 11:20 | Electrocardiogram Report ---
Test Reason : Blood Pressure : / mmHG Vent. Rate : 075 BPM Atrial Rate : 075 BPM P-R Int : 164 ms QRS Dur : 106 ms QT Int : 472 ms P-R-T Axes : 026 052 044 degrees QTc Int : 527 ms Normal sinus rhythm Prolonged QT Abnormal ECG When compared with ECG of 23-OCT-2022 17:24, (unconfirmed) QT has shortened Confirmed by Esteban Aguirre ([id number]) on 10/24/2022 11:20:34 AM Referred By: REFERRED SELF Confirmed By:Esteban Aguirre
--- NOTE | 2022-10-24 11:26 | Electrocardiogram Report ---
Test Reason : Blood Pressure : / mmHG Vent. Rate : 080 BPM Atrial Rate : 080 BPM P-R Int : 156 ms QRS Dur : 100 ms QT Int : 458 ms P-R-T Axes : 048 047 036 degrees QTc Int : 528 ms Normal sinus rhythm Prolonged QT Abnormal ECG When compared with ECG of 23-OCT-2022 21:58, (unconfirmed) No significant change was found Confirmed by Esteban Aguirre ([id number]) on 10/24/2022 11:25:57 AM Referred By: REFERRED SELF Confirmed By:Esteban Aguirre
--- NOTE | 2022-10-24 14:22 | Gastroenterology Progress Note ---
Date of Service October 24, 2022 Assessment & Plan (1) Hematemesis: (2) Alcohol abuse: (3) Abnormal LFTs: Plan: Acute liver panel is still pending Continue supportive care No signs of Fulminant hepatic failure at present, would recommend checking PT/INR every 6 hours x2. If INR increases significantly or patient develops encephalopathy, would consider transfer to tertiary care center with Liver transplant program. Again stressed the need to abstain from all alcohol as it is a known liver toxin Will need to followup in our office in 1-2 weeks upon discharge for full outpatient workup. Recommend Hemochromatosis panel as outpatient. Admission and Anticipated Discharge Date Admission Date: October 23, 2022 Subjective Feeling much better today. Denies any fevers, chills, nausea, vomiting, diarrhea, chest pain or abdominal pain. States he is tolerating PO intake. Liver panel showed Tbili 11.5, Direct bili 6.4, otherwise unchanged. Review of Systems Review of Systems: All systems reviewed & are unremarkable except as noted in Subjective Physical Exam Constitutional: WD/WN, vitals as above Eyes: sclerae not anicteric Neck: normal visual inspection Respiratory: normal respiratory effort, lungs clear to auscultation Cardiovascular: RRR, no murmur, no edema Gastrointestinal (Abdomen): normal bowel sounds, soft, nontender, no hepatosplenomegaly Psychiatric: A+Ox3, euthymic affect Results & Data Results & Data ([facility]) Vital Signs (Past 12 Hours) Vital Signs Temp Pulse Pulse Resp BP BP BP 10/24/22 11:50 37.2 C 85 18 134/97 10/24/22 10:00 98 H 18 144/98 H 10/24/22 09:26 92 H 16 140/90 10/24/22 09:00 99 H 22 133/91 10/24/22 08:32 92 H 24 155/86 H 10/24/22 08:00 102 H 24 124/86 10/24/22 07:51 113 H 16 131/86 10/24/22 07:00 84 21 147/98 H 10/24/22 08:00 10/24/22 08:00 37.2 C 100 H 23 124/86 10/24/22 07:00 84 10/24/22 06:00 86 18 139/94 10/24/22 05:00 75 17 137/91 10/24/22 04:00 37.2 C 74 18 145/85 H 10/24/22 03:00 75 22 147/99 H Pulse Ox O2 Del Method O2 Flow Rate 10/24/22 11:50 96 Room Air 10/24/22 10:00 95 Room Air 10/24/22 09:26 92 Room Air 10/24/22 09:00 91 Room Air 10/24/22 08:32 94 Room Air 10/24/22 08:00 90 Room Air 10/24/22 07:51 93 Room Air 10/24/22 07:00 92 Room Air 10/24/22 08:00 Room Air 10/24/22 08:00 91 Room Air 10/24/22 07:00 10/24/22 06:00 94 Nasal Cannula 2 10/24/22 05:00 95 Nasal Cannula 2 10/24/22 04:00 94 Nasal Cannula 2 10/24/22 03:00 96 Nasal Cannula 2 PG Care Time/CCT Total # of Minutes Spent Total Time Spent with Patient: Total time spent is greater than 50% in coordination of care (as documented) at patient's floor/unit and/or counseling patient: Coding Level of Care Code 94715 Subseq Hosp Care Lvl 3 Diagnoses Hematemesis K92.0 Nausea presence: with nausea Alcohol abuse F10.10 Abnormal LFTs R79.89 (1) Hematemesis Nausea presence: with nausea Qualified Code(s): K92.0 - Hematemesis
--- NOTE | 2022-10-24 14:54 | Hospitalist Progress Note ---
Date of Service October 24, 2022 Assessment & Plan (1) Torsades de pointes: Plan: Amiodarone drip has been discontinued. Avoid bradycardia. Correct electrolyte disturbance. Serial EKGs ordered. (2) Electrolyte abnormality: Plan: Hypokalemia and hypomagnesemia have been corrected. Serial labs ordered. (3) Abnormal LFTs: Plan: Patient with mixed hepatocellular and obstructive pattern on LFTs. Marked increase in total bilirubin at 10.1. Patient does drink daily. Last drink was 1 week ago. We will continue to monitor LFTs daily . Avoid scheduled dosing of Tylenol. NAC protocol has been completed (4) Metabolic acidosis: Plan: Initial anion gap of 19. Now resolved . Serial labs (5) Hematemesis: Plan: Patient reports hematemesis. None seen while hospitalized. We will continue Protonix therapy. GI Consultation appreciated. Monitor CBC (6) Alcohol use disorder: Plan: Patient with frequent EtOH use. Probably accounting for liver abnormalities. Last drink was 1 week ago. Monitor for EtOH withdrawal, DTs. AWSS protocol. Librium scheduled dosing started today, October 24, and will continue at discharge in a tapering dose fashion Plan Anticipate eventual discharge to home, hopefully tomorrow, October 25 Admission and Anticipated Discharge Date Admission Date: October 23, 2022 Subjective Alert and oriented. We discussed chlordiazepoxide tapering dose at length for alcohol withdrawal symptoms. He is somewhat tremulous but his is at the bedside and says he has chronic anxiety at home. He also has chronic arthralgias and probably will restart meloxicam at some point. He probably should avoid Tylenol regular dosing considering he has underlying liver disease. Cardiology entry noted. QTc interval remains prolonged Review of Systems Review of Systems: Constitutional-no fever or chills ENT-no blurred vision, no double vision, no epistaxis, no sore throat Respiratory-no cough, no wheezing, no shortness of breath Cardiac-no palpitations, no chest pain, no syncope GI-the patient has had some nausea and vomiting over the past few days but no diarrhea, melena, hematochezia -no urinary retention, no urinary incontinence, no dysuria, no hematuria Musculoskeletal-no joint pain, no muscle tenderness Skin-no bruising, no rashes, no pruritus Neuro-no isolated weakness, no paresthesia, no weakness Psych-no depression, no anxiety Physical Exam Physical Exam: General-alert and oriented x3, no fevers, no chills HEENT-head atraumatic and normocephalic, pupils equal and reactive to light, extraocular muscles intact Neck-no lymphadenopathy or thyromegaly, trachea midline Chest-clear to auscultation percussion. No rales wheezing or rhonchi Cardiac-regular rate and rhythm, normal S1 and S2, no murmurs Abdomen-normal bowel sounds, nontender, no hepatosplenomegaly Extremities-no cyanosis, clubbing, or edema Neuro-cranial nerves II through XII intact, motor and sensory function within normal limits, strength symmetrical , no focal deficits Psych-normal affect, normal mood Results & Data Results & Data ([facility]) Vital Signs (Past 12 Hours) Vital Signs Temp Pulse Pulse Resp BP BP BP 10/24/22 11:50 37.2 C 85 18 134/97 10/24/22 10:00 98 H 18 144/98 H 10/24/22 09:26 92 H 16 140/90 10/24/22 09:00 99 H 22 133/91 10/24/22 08:32 92 H 24 155/86 H 10/24/22 08:00 102 H 24 124/86 10/24/22 07:51 113 H 16 131/86 10/24/22 07:00 84 21 147/98 H 10/24/22 08:00 10/24/22 08:00 37.2 C 100 H 23 124/86 10/24/22 07:00 84 10/24/22 06:00 86 18 139/94 10/24/22 05:00 75 17 137/91 10/24/22 04:00 37.2 C 74 18 145/85 H 10/24/22 03:00 75 22 147/99 H Pulse Ox O2 Del Method O2 Flow Rate 10/24/22 11:50 96 Room Air 10/24/22 10:00 95 Room Air 10/24/22 09:26 92 Room Air 10/24/22 09:00 91 Room Air 10/24/22 08:32 94 Room Air 10/24/22 08:00 90 Room Air 10/24/22 07:51 93 Room Air 10/24/22 07:00 92 Room Air 10/24/22 08:00 Room Air 10/24/22 08:00 91 Room Air 10/24/22 07:00 10/24/22 06:00 94 Nasal Cannula 2 10/24/22 05:00 95 Nasal Cannula 2 10/24/22 04:00 94 Nasal Cannula 2 10/24/22 03:00 96 Nasal Cannula 2 Laboratory Results 10/24/22 02:39 10/24/22 07:54 PG Care Time/CCT Total # of Minutes Spent Total Time Spent with Patient: Total time spent is greater than 50% in coordination of care (as documented) at patient's floor/unit and/or counseling patient: Coding Level of Care Code 91223 Subseq Hosp Care Lvl 3 Diagnoses Torsades de pointes I47.21 Electrolyte abnormality E87.8 Abnormal LFTs R79.89 Metabolic acidosis E87.20 Hematemesis K92.0 Alcohol use disorder F19.90
[2022-10-24] MEDS ORDERED: KETOROLAC TROMETHAMINE 15 MG/ML VIAL IV PRN (17:09)
[2022-10-24] MEDS: POT PHOSPHATE MONOBASIC W/ SOD TAB PO SCH (20:52)
[2022-10-25 04:58] LABS: INR 1.6 (0.9-1.1); Partial Thromboplastin Time 27.6 Seconds (21.0-31.0); Prothrombin Time 16.3 Seconds (9.0-12.0)
[2022-10-25 05:21] LABS: BUN Creatinine Ratio 9.9 (10-20); Calcium 8.9 mg/dl (8.5-10.1); Creatinine Clr Calc Pharmacy 136.5 ml/min; Est GFR (African American) 125.3 ml/min; Est GFR (Non-African American) 108.1 ml/min; Magnesium 1.7 mg/dl (1.7-2.4); Phosphorus 2.6 mg/dl (2.5-4.9); Potassium 3.7 mmol/L (3.5-5.1)
[2022-10-25] MEDS: MULTIVITAMIN TAB PO SCH (08:03)
[2022-10-25] MEDS: METOPROLOL TARTRATE 25 MG TAB PO SCH (08:03)
[2022-10-25] MEDS: PANTOprazole 40 MG in SYRINGE 0 ML IV SCH (08:05)
[2022-10-25] MEDS: POT PHOSPHATE MONOBASIC W/ SOD TAB PO SCH (08:05)
[2022-10-25] MEDS: THIAMINE HCL 500 MG in SODIUM CHLORIDE 0.9% 50 ML IV SCH (08:06)
[2022-10-25 08:40] LABS: Albumin Level 3.6 gm/dl (3.4-5.0); Bilirubin Direct 7.3 mg/dl (0-0.2); Bilirubin,Total 12.5 mg/dl (0.2-1.0); Total Protein 5.5 gm/dl (6.0-8.3)
[2022-10-25] MEDS ORDERED: POTASSIUM CHLORIDE CRTAB 20 MEQ TABCR PO SCH (09:00)
--- NOTE | 2022-10-25 09:05 | Cardiology Consultation ---
Date of Consultation October 25, 2022 Assessment & Plan (1) Torsades de pointes: (2) Prolonged QT interval: Plan 1. Polymorphic ventricular tachycardia: The patient did have frequent and limited runs of polymorphic VT leading up to a more sustained episode. According to the patient he did not lose consciousness until after cardioversion. Undoubtedly this was related to his severe electrolyte abnormalities and prolonged QT see. With aggressive replacement of his electrolytes no additional arrhythmias have been observed. Amiodarone was initially employed but discontinued shortly after his admission. Beta-blockade was also initiated with metoprolol. 2. Prolonged QT interval: Most likely acquired due to severe electrolyte abnormalities. This was secondary to his anorexia and gastrointestinal disturbance. Also noted to have an element of liver dysfunction and alcoholism. Did not appear to be taking any medications which would likely to have prolonged QTC. QTC remained prolonged until today. This is possibly related to continued model electrolyte abnormalities and prior amiodarone infusion. At this point the main concern would be the presence of underlying congenital channelopathy which would predispose him to a prolonged QTC in the setting of electrolyte derangements. An EKG from 10/13/2021 obtained by his primary care physician was normal. QTC at that time was 459. he has no personal history of arrhythmias, dizziness or syncope. There are no first-degree or extended relatives with a history consistent with long QT syndrome either. I think would be reasonable to perform exercise treadmill testing ( he was actually scheduled for an outpatient stress echocardiogram tomorrow for symptoms of atypical chest discomfort). this will allow us to see his QT response to exercise and recovery. Additionally, this will help us exclude the presence of coronary disease and the remote possibility of underlying ischemia causing ventricular tachycardia. I will switch his metoprolol to nadolol which has better efficacy in the setting of congenital long QT. I think we will also refer him for genetic testing. History of Present Illness Reason for Consultation: VT, long QT Requesting Physician: Carla Attending Physician: Radha Tang MD History of Present Illness The patient is a 42-year-old gentleman without a known history of cardiac disease who presented to the emergency room with gastrointestinal symptoms and palpitations. In the emergency room he was noted to have frequent runs of polymorphic ventricular tachycardia and 1 point underwent cardioversion. He was discovered to have severe electrolyte abnormalities. Electrolytes were replenished the patient was started on amiodarone infusion. Was also noted to have a transaminitis. Patient did report to have frequent nausea and vomiting for several days leading up to his admission. He had significant gastrointestinal disturbance for up to 2 weeks. Patient states that prior to his recent illness he was able to perform routine activity with little limitation. He does have some cervical spine disease which causes discomfort at times. However, he did not report significant limiting dyspnea. He does have occasions of chest discomfort, but these appear to be positional in nature and not related to exertion. Did not endorse symptoms of chest discomfort with exertion. Generally speaking he does not have palpitations. He has not been experiencing episodes of dizziness or lightheadedness. He cannot recall any episodes of syncope in the past. Since admission the patient has had improvement in his symptoms. He is currently tolerating a regular diet. He has not noticed any additional palpitations. He recalls the events that occurred in the emergency room including cardioversion. No reported family members with frequent syncope, arrhythmias or significant cardiac disease. No untimely in the family such as drownings or unexplained motor vehicle accidents. Patient has no children of his own. Allergies Allergy/AdvReac Type Severity Reaction Status Date / Time No Known Allergies Allergy Mild Unverified 07/22/21 08:30 Home Medications Medication Instructions Recorded Confirmed Type Cyclobenzaprine Hcl (Flexeril *) 10 mg PO TID ##21 08/28/09 07/22/21 Rx Hydrocodone/Acetaminophen 1 - 2 tab PO Q6HR PRN ##20 08/28/09 07/22/21 Rx 5MG/500MG (Vicodin 5MG/500MG) None (Patient States No Home Meds) ##0 08/28/09 07/22/21 History diazepam 5 mg tablet (Valium) 5 mg PO TID PRN muscle spasm #14 07/21/21 07/22/21 Rx tabs methylprednisolone 4 mg tablets in See Rx Instructions .Route 07/21/21 07/22/21 Rx a dose pack (Medrol (Obdulio)) .COMPLEX #21 ea Patient History Medical History De Quervain's syndrome (tenosynovitis) Social History Smoking Status: Former smoker Tobacco Type: Smokeless Tobacco (Dip or Chew) Second Hand Exposure: No; Hx Alcohol Use: Yes Alcohol type: hard liquor Hx Substance Use: No Preferred Language: Wolof Communication Ability: Effective Measurement Operator Required: No Beliefs That Will Affect Care: None Current Living Situation: Spouse Feels Safe at Home: Yes Assistive Devices: None Review of Systems Review of Systems: Per HPI Physical Exam Physical Exam: The patient is alert and oriented. Mood and affect appeared normal. He answered all questions appropriately. HEENT: Pupils are equal and reactive to light and accommodation. Extraocular movements are intact. The sclerae are anicteric. Neuro: Cranial nerves intact Lungs: Clear to auscultation bilaterally. He has good air movement without use of accessory muscles. No rales wheezes or rhonchi. Cardiac: Heart demonstrates a regular rate and rhythm. Normal S1 and S2. No murmurs on examination. Pulses: The patient has palpable radial pulses bilaterally that are equal in intensity Extremities: There was no evidence of hypoperfusion. There is no cyanosis or clubbing. There is no edema. Skin: I did not appreciate any rashes on examination today. Results & Data ([facility]) Vital Signs (Past 12 Hours) Vital Signs Temp Pulse Resp BP Pulse Ox O2 Del Method 10/25/22 08:00 37.2 C 98 H 18 123/82 94 Room Air 10/25/22 04:00 36.8 C 92 H 18 142/89 H 97 Room Air 10/25/22 00:00 37.4 C 85 16 140/92 95 Room Air Laboratory Results Abnormal Lab Results 10/25/22 10/25/22 10/25/22 04:26 04:26 04:26 PT 16.3 H INR 1.6 H APTT 27.6 PTT Ratio 1.0 Sodium 133 L Potassium 3.7 Chloride 96 L Carbon Dioxide 30 Anion Gap 7 BUN 8 Creatinine 0.81 Est Cr Clr Drug Dosing 136.5 Est GFR ( Amer) 125.3 Est GFR (Non-Af Amer) 108.1 BUN/Creatinine Ratio 9.9 L Glucose 93 Calcium 8.9 Phosphorus 2.6 D Magnesium 1.7 Total Bilirubin 12.5 H Direct Bilirubin 7.3 H AST 205 H ALT 107 H Alkaline Phosphatase 168 H Total Protein 5.5 L Albumin 3.6 Diagnostic Findings Echocardiogram obtained 10/23/2022: Normal LV systolic function. Ejection fraction 60-65%. No significant valvular heart disease. Normal echocardiogram. ECG Additional Comments: EKG obtained this morning revealed normal sinus rhythm. Q-waves in lead 3 and AVF. Normal QTC. Normal T-wave morphology. PG Care Time/CCT Total # of Minutes Spent Total Time Spent with Patient: Total time spent is greater than 50% in coordination of care (as documented) at patient's floor/unit and/or counseling patient: Coding Level of Care Code 14634 Inpt Consult Level 4 Diagnoses Torsades de pointes I47.21 Prolonged QT interval R94.31
--- NOTE | 2022-10-25 09:51 | Gastroenterology Progress Note ---
Date of Service October 25, 2022 Assessment & Plan (1) Abnormal LFTs: (2) Hematemesis: (3) Alcohol abuse: Plan - Acute liver panel is still pending, will await results. recommend hemochromatosis panel as an outpatient. - Continue supportive care. will follow labs. - abstain from alcohol. - he tells me he had contacted our office this morning to see about getting hospital follow up set up in 1-2 weeks. - No signs of Fulminant hepatic failure at present. If INR increases signific antly or patient develops encephalopathy, would consider transfer to tertiary care center with Liver transplant program. - continue protonix 40mg IV BID. Admission and Anticipated Discharge Date Admission Date: October 23, 2022 Supervising Physician Co-Signing Physician Notes Agree with ARTI Garcia as above Patient was discharged prior to my evaluation. Subjective Patient tells me he is feeling well currently. no further episodes of vomiting since inpatient. 10/26/22 labs show INR 1.6, ALT 107, AST 205, total bili 12.5, d bili 7.3. hep panel pending. Patient denies any current issues with nausea, vomiting, dysphagia, heartburn, abdominal pain, change in bowels, melena, or bright red blood per rectum. Physical Exam Constitutional: WD/WN, vitals as above Respiratory: normal respiratory effort, lungs clear to auscultation Cardiovascular: RRR, no murmur, no edema Gastrointestinal (Abdomen): normal bowel sounds, soft, nontender, no hepatosplenomegaly Skin: no rashes, warm and dry Psychiatric: Orientation: alert and oriented x 3 Affect: euthymic affect Results & Data Results & Data ([facility]) Vital Signs (Past 12 Hours) Vital Signs Temp Pulse Resp BP Pulse Ox O2 Del Method 10/25/22 08:00 37.2 C 98 H 18 123/82 94 Room Air 10/25/22 04:00 36.8 C 92 H 18 142/89 H 97 Room Air 10/25/22 00:00 37.4 C 85 16 140/92 95 Room Air PG Care Time/CCT Total # of Minutes Spent Total Time Spent with Patient: Total time spent is greater than 50% in coordination of care (as documented) at patient's floor/unit and/or counseling patient: Coding Level of Care Code 91259 Subseq Hosp Care Lvl 2 Diagnoses Abnormal LFTs R79.89 Hematemesis K92.0 Alcohol abuse F10.10
--- NOTE | 2022-10-25 12:10 | Discharge Summary ---
Date of Service October 25, 2022 Admission HPI Per Admitting Provider Talat Lopez is a 42yo male with history of regular EtOH use presenting with complaint of nausea and vomiting with hematemesis. Patient drinks daily - at least 2-3 beers and vodka. He was told last year that he had elevated LFTs which apparently normalized with diet and abstinence from alcohol. Patient presented to the ER tonight with above complaints as well as weakness, SOB and intermittent chest pain. In the ER patient had an episode of Torsades. He was defibrillated at 200J and given IV Amiodarone and Magnesium x 1 gram. He returned to [facility]. Patient is presently on an Amiodarone drip. He is complaining of ongoing nausea. No chest pain at present. Workup as below revealed a high anion-gap metabolic acidosis as well as electrolyte derangements, hypokalemia and hypomagnesemia. Also with abnormal L FTs including a Tbili of 10, elevated AST/ALT and AP. Principal Diagnosis Tosardes, alcohol abuse Discharge Exam The patient is awake, alert and oriented 3, well developed and well nourished, normocephalic and atraumatic, lying in bed and in no acute distress. HEENT--PERRL, EOMI, mucous membranes and oropharynx mildly dry Neck--supple. No JVD. No bruits. Thyroid normal, trachea midline, no adenopathy. Heart--normal S1 and S2. No murmurs, rubs or gallops. Lungs--clear bilaterally, no respiratory distress, no accessory muscle use. Abdomen--normal bowel sounds and soft. Mild epigastric and left sided abdominal pain Extremities--no cyanosis or clubbing. No edema. Dermatologic--normal skin turgor, normal color, no abnormal lymph nodes, no rash. Neurologic--cranial nerves II through XII grossly intact. Rheumatologic--normal range of motion. Psychiatric--normal affect. Discharge Data Allergies Allergy/AdvReac Type Severity Reaction Status Date / Time No Known Allergies Allergy Mild Unverified 07/22/21 08:30 Consultations 10/23/22 06:24 ED Decision to Admit Stat 10/23/22 06:44 Consult Cardiology Stat Consult Gastroenterology Stat 10/23/22 08:23 Consult Furnace Combustion Analyst Routine Ordered Studies 10/23/22 06:10 CT Abd and Pelvis [CT abd pelvis wo con] Stat CT for pulmonary embolism PE [CT angio chest PE protocol] Stat Hospital Course (1) Torsades de pointes: Amiodarone drip has been discontinued. Avoid bradycardia. Correct electrolyte disturbance. Serial EKGs ordered. (2) Electrolyte abnormality: Hypokalemia and hypomagnesemia have been corrected. Serial labs ordered. (3) Abnormal LFTs: Patient with mixed hepatocellular and obstructive pattern on LFTs. Marked increase in total bilirubin at 10.1. Patient does drink daily. Last drink was 1 week ago. We will continue to monitor LFTs daily . Avoid scheduled dosing of Tylenol. NAC protocol has been completed (4) Metabolic acidosis: Initial anion gap of 19. Now resolved . Serial labs (5) Hematemesis: Patient reports hematemesis. None seen while hospitalized. We will continue Protonix therapy. GI Consultation appreciated. Monitor CBC (6) Alcohol use disorder: Patient with frequent EtOH use. Probably accounting for liver abnormalities. Last drink was 1 week ago. Monitor for EtOH withdrawal, DTs. AWSS protocol. Librium scheduled dosing started today, October 24, and will continue at discharge in a tapering dose fashion Plan Cardiology wanted to carry out a stress test, but the patient would rather have it done outpatient, he wanted to be dischared Total Time Total Time Spent Total Time Spent (In Minutes): 35 Discharge Plan Discharge Items Patient Disposition: Home - Self-Care Reason For Visit: HEMATEMESIS,TORSADES Discharge Diagnosis: alcohol abuse, Tosardes Activity: Resume your previous activity Non-emergency contact: Primary Care Provider, Vice President Digital Strategist and Tank Truck Engine Mechanic Call non-emergency contact if: you have any medication questions Follow-up/Referrals: Fang Fisher CRNP [Primary Care Provider] - Diet: Regular Addtl Attending Provider Instructions: please make appointment to see your hybrid corn breeder and mast maker as soon as possible Pending Studies at Discharge: No Stand-Alone Forms: My i[employer], Smoking Cessation Medications and DC Order Prescriptions: New multivitamin with folic acid [Daily-Britt (with folic acid)] 400 mcg Tablet 1 tab PO QAM 30 Days Qty: 30 0RF nadolol 40 mg tablet 40 mg PO DAILY 30 Days Qty: 30 0RF Continued None (Patient States No Home Meds) . Qty: 0 Cyclobenzaprine Hcl (Flexeril *) 10 MG tablet 10 mg PO TID Qty: 21 0RF Rx Instructions: PRN Discontinued Hydrocodone/Acetaminophen 5MG/500MG (Vicodin 5MG/500MG) tablet 1 - 2 tab PO Q6HR PRN Qty: 20 0RF Rx Instructions: PAIN diazepam [Valium] 5 mg tablet 5 mg PO TID PRN (Reason: muscle spasm) Qty: 14 0RF methylprednisolone [Medrol (Obdulio)] 4 mg tablets,dose pack See Rx Instructions .ROUTE .COMPLEX Qty: 21 0RF Rx Instructions: As Per Packaging Discharge Orders: Discharge Order (Routine); Ordered 10/25/22 Ordered By: Radha Tang Admission Data Admit Date/Time: 10/23/22 06:35 Attending Provider: Radha Tang Admit Provider: Sabrina Hernandez Primary Care Provider: Fang Fisher Other Providers: Sabrina Hernandez ; Doni Nobles ; Eduin Rincon ; Esteban Aguirre ; Thomas Zendejas ; Rolando Golden ; Fam Grullon Jr ; Vito Bauer ; Rosy Brock ; Evelyn Campuzano ; Ashwin Carrizales ; Silas Schneider ; Jameson Min ; Kylah Gonzalez ; Maria Luisa Deshpande ; Tre Rico ; David Lin Henry C. ; Thomas Kaminski V. ; Jennifer Guan ; Duc Myers ; Rain Isbell ; Iman Dodd ; Ghislaine Uriarte ; Malu Bowling ; [place],Aroldo ; Maricarmen Moreno ; Kurt Griggs ; Humble Hair ; Oralia Diane ; Eddy Lanidn ; Clementine Mei ; Melyssa Contreras ; Viridiana Wayne ; Nancy Ma ; Yennifer Puentes ; Immanuel [place] ; Guzman Lilly ; Meli Weber ; Bean Tidwell Jr ; Jim aLnders Coding Level of Care Code D/C DAY MANAGEMENT >30 MINS Diagnoses Torsades de pointes I47.21 Electrolyte abnormality E87.8 Abnormal LFTs R79.89 Metabolic acidosis E87.20 Hematemesis K92.0 Alcohol use disorder F19.90 Time Spent (min) 35
[2022-10-25 12:22] LABS: HBSAG NON-REACTIVE (NON-REACTIVE); Hepatitis A Antibody IgM NON-REACTIVE (NON-REACTIVE); Hepatitis B Core Antibody IgM NON-REACTIVE (NON-REACTIVE)
--- NOTE | 2022-10-25 17:03 | Electrocardiogram Report ---
Test Reason : Blood Pressure : / mmHG Vent. Rate : 087 BPM Atrial Rate : 087 BPM P-R Int : 154 ms QRS Dur : 096 ms QT Int : 406 ms P-R-T Axes : 041 036 016 degrees QTc Int : 488 ms Normal sinus rhythm Normal ECG When compared with ECG of 24-OCT-2022 06:58, QT has shortened Confirmed by Esteban Aguirre ([id number]) on 10/25/2022 5:02:51 PM Referred By: REFERRED SELF Confirmed By:Esteban Aguirre
== END 2022-10-25 13:00 | disposition home or self-care (01) | DRG 309 ==
LOC: ED 04:45 → SUATTDRO 06:35 → 1E 06:35